=== PATIENT | female | born 1945 | race Caucasian/White ===

== ENCOUNTER 2022-05-17 09:17 | Outpatient (CLI) | payer OTHER, MEDICARE ==
[2022-05-17 09:49] LABS: BASOPHILS % (AUTO) 0.4 %; EOSINOPHILS # (AUTO) 0.1 10^3/uL (0.0-0.7); EOSINOPHILS % (AUTO) 0.9 %; HCT - HEMATOCRIT 48.2 % (37.0-47.0); HGB - HEMOGLOBIN 15.7 g/dL (12.0-16.0); LYMPHOCYTES % (AUTO) 40.3 %; MEAN CORPUSCULAR HEMOGLOBIN 29.7 pg (27.0-31.0); MEAN CORPUSCULAR HGB CONC 32.6 g/dL (32.0-36.0); MEAN CORPUSCULAR VOLUME 91.1 fL (81.0-99.0); MEAN PLATELET VOLUME 9.5 fL (7.9-10.8); MONOCYTES # (AUTO) 0.5 10^3/uL (0.0-1.0); MONOCYTES % (AUTO) 6.8 %; NEUTROPHILS # (AUTO) 3.8 10^3/uL (1.5-6.6); NEUTROPHILS % (AUTO) 51.3 %; PLT - PLATELET COUNT 232 10^3/uL (130-450); RED BLOOD COUNT 5.29 10^6/uL (4.20-5.40); RED CELL DISTRIBUTION WIDTH 12.8 % (12.0-15.0); WHITE BLOOD COUNT 7.5 x10^3/uL (4.8-10.8)
[2022-05-17 09:50] LABS: BILIRUBIN,URINE NEGATIVE (NEGATIVE); GLUCOSE, URINE (UA) NEGATIVE (NEGATIVE); KETONES,URINE (UA) NEGATIVE (NEGATIVE); LEUKOCYTE ESTERASE, URINE SMALL (NEGATIVE); NITRITE,URINE NEGATIVE (NEGATIVE); OCCULT BLOOD,URINE NEGATIVE (NEGATIVE); PROTEIN,URINE NEGATIVE (NEGATIVE); UROBILINOGEN,URINE 0.2 (NORMAL) E.U./dL (NORMAL)
[2022-05-17 10:05] LABS: CLARITY,URINE CLEAR (CLEAR); RBC,URINE None Seen /HPF (0-5); SQUAMOUS EPITHELIAL CELL,UR MOD Squamous (<= Few)
[2022-05-17 10:06] LABS: BACTERIA,URINE Few /HPF (None Seen)
[2022-05-17 10:16] LABS: THYROID STIMULATING HORMONE 2.54 uIU/mL (0.34-5.60)
[2022-05-17 11:32] LABS: ALBUMIN 4.1 g/dL (3.2-5.5); ALBUMIN/GLOBULIN RATIO 1.1 (1.0-2.2); ALKALINE PHOSPHATASE 44 IU/L (42-121); ALT ALANINE AMINOTRANSFERASE 16 IU/L (10-60); AST ASPARTATE AMINOTRANSFERASE 19 IU/L (10-42); BUN - BLOOD UREA NITROGEN 16 mg/dL (6-20); CALCIUM 9.7 mg/dL (8.5-10.3); CARBON DIOXIDE - CO2 26 mmol/L (21-32); CHLORIDE 102 mmol/L (101-111); CHOL/HDL RATIO 4.9 (<4.4); CHOLESTEROL 309 mg/dL; CREATININE 0.8 mg/dL (0.4-1.0); GFR - MDRD 70 (>89); GLUCOSE 98 mg/dL (70-100); HDL CHOLESTEROL 63 mg/dL; LDL CHOLESTEROL,CALCULATED 226 mg/dL; LDL/HDL RATIO 3.6 (<4.4); POTASSIUM 3.9 mmol/L (3.5-5.0); SODIUM 136 mmol/L (135-145); TOTAL PROTEIN 7.7 g/dL (6.7-8.2); TRIGLYCERIDES 98 mg/dL; VLDL CHOLESTEROL 20 mg/dL
== END 2022-05-17 09:18 | disposition home or self-care (01) ==
LOC: LAB 09:17
PROVIDERS: ATTEND Physician Assistant
DX: R94.4 Abnormal results of kidney function studies (principal); R42 Dizziness and giddiness; E78.5 Hyperlipidemia, unspecified; R35.0 Frequency of micturition
CPT/HCPCS: 36415; 80053; 80061; 81001; 83721; 84443; 85025; 87086

== ENCOUNTER 2022-05-20 08:00 | Outpatient (CLI) | payer MEDICARE ==
[2022-05-20 18:47] LABS: BILIRUBIN,URINE NEGATIVE (NEGATIVE); CLARITY,URINE CLEAR (CLEAR); GLUCOSE, URINE (UA) NEGATIVE (NEGATIVE); KETONES,URINE (UA) NEGATIVE (NEGATIVE); LEUKOCYTE ESTERASE, URINE TRACE (NEGATIVE); NITRITE,URINE POSITIVE (NEGATIVE); OCCULT BLOOD,URINE NEGATIVE (NEGATIVE); PROTEIN,URINE NEGATIVE (NEGATIVE); UROBILINOGEN,URINE 0.2 (NORMAL) E.U./dL (NORMAL)
[2022-05-20 19:08] LABS: RBC,URINE 0-5 /HPF (0-5); SQUAMOUS EPITHELIAL CELL,UR FEW Squamous (<= Few)
[2022-05-20 19:09] LABS: BACTERIA,URINE Many /HPF (None Seen)
== END 2022-05-20 23:59 | disposition home or self-care (01) ==
LOC: LAB 08:00
PROVIDERS: ATTEND Physician Assistant
DX: R35.0 Frequency of micturition (principal)
CPT/HCPCS: 81001; 87077; 87086; 87181

== ENCOUNTER 2022-05-24 09:22 | Outpatient (CLI) | payer MEDICARE ==
--- NOTE | 2022-05-24 11:35 | XRAY Report ---
PROCEDURE: Lumbar Spine Complete INDICATIONS: BI LAT LEG PAIN LEG WEAKNESS AND UNSTEADY GATE TECHNIQUE: 4 views of the lumbar spine were acquired. COMPARISON: None. FINDINGS: Bones: 5 sol-vud-[id number] vertebrae are present. Minimal scoliosis. Small vertebral body osteophytes. Lower lumbar spine facet joint hypertrophy with neural foraminal narrowing. No vertebral body compr ession fractures. No suspicious bony lesions. Soft tissues: Overlying bowel gas pattern is normal. No suspicious soft tissue calcifications. Cho lecystectomy clips. Clips in the region of the stomach. Aortic vascular calcifications. IMPRESSION: No compression fracture. Overall moderate DDD and degenerative change. MRI could be considered for further evaluation. Reviewed by: Mark Owens MD on 05/24/2022 10:34 AM MARSHA Approved by: Mark Owens MD on 05/24/2022 10:34 AM MARSHA Station ID: [id number]
--- NOTE | 2022-05-24 11:39 | XRAY Report ---
PROCEDURE: Hips 2V BILAT INDICATIONS: BI LAT LEG PAIN LEG WEAKNESS AND UNSTEADY GATE TECHNIQUE: 2 views of the hip were acquired. COMPARISON: Same day lumbar spine radiographs. FINDINGS: Bones: No fractures or dislocations. There is mild sclerosis at the iliac aspects of the SI joints bilaterally. There is mild sclerosis at the pubic symphysis. There is mild to moderate joint space na rrowing at the hip joints which is symmetric. There is acetabular roof sclerosis. No suspicious bony lesions. The visualized pelvic ring appears intact. Soft tissues: No suspicious soft tissue calcifications or masses. IMPRESSION: Moderate bilateral hip DJD. Sclerosis at the SI joints. 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 Reviewed by: Mark Owens MD on 05/24/2022 10:38 AM MARSHA Approved by: Mark Owens MD on 05/24/2022 10:38 AM MARSHA Station ID: [id number]
--- NOTE | 2022-05-24 11:40 | XRAY Report ---
PROCEDURE: Knee 3 View LT INDICATIONS: BI LAT LEG PAIN LEG WEAKNESS AND UNSTEADY GATE TECHNIQUE: 3 views of the left knee(s) were acquired. COMPARISON: None. FINDINGS: Bones: No fractures or dislocations. There is moderate joint space narrowing most pronounced at the lateral compartment. There is tricompartment osteophytosis. No suspicious bony lesions. Soft tissues: Trace joint effusion. No suspicious soft tissue calcifications. 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 Reviewed by: Mark Owens MD on 05/24/2022 10:39 AM MARSHA Approved by: Mark Owens MD on 05/24/2022 10:39 AM MARSHA Station ID: [id number]
== END 2022-05-24 09:23 | disposition home or self-care (01) ==
LOC: DI 09:22
PROVIDERS: ATTEND Physician Assistant
DX: M51.36 Other intervertebral disc degeneration, lumbar region (principal); M47.816 Spondylosis without myelopathy or radiculopathy, lumbar region; M16.0 Bilateral primary osteoarthritis of hip; M17.12 Unilateral primary osteoarthritis, left knee

== ENCOUNTER 2022-06-05 07:41 | Outpatient (CLI) | payer MEDICARE | END 2022-06-05 07:42 | disposition home or self-care (01) | LOC: DI 07:41 | PROVIDERS: ATTEND Physician Assistant | DX: R01.1 Cardiac murmur, unspecified (principal); I51.7 Cardiomegaly | CPT/HCPCS: 93306 ==

== ENCOUNTER 2022-08-04 15:28 | Outpatient (CLI) | payer MEDICARE ==
--- NOTE | 2022-08-04 12:22 | XRAY Report ---
PROCEDURE: Knee 4 View LT INDICATIONS: LEFT KNEE PAIN TECHNIQUE: 4 views of the left knee(s) were acquired. COMPARISON: None. FINDINGS: Bones: No fractures or dislocations. No suspicious bony lesions. There is moderate to severe left medial compartment narrowing unchanged. Small periarticular osteophytes. Moderate to severe lateral c ompartment narrowing is present bilaterally. Talar osteophyte with mild to moderate patellofemoral co mpartment narrowing is present. Soft tissues: Mild joint effusion. No suspicious soft tissue calcifications. IMPRESSION: Tricompartmental arthritic change stable compared to prior exam. Reviewed by: Lorrie Wren MD on 08/04/2022 12:21 PM PST Approved by: Lorrie Wren MD on 08/04/2022 12:21 PM PST Station ID: [id number]
== END 2022-08-04 15:29 | disposition home or self-care (01) ==
LOC: DI.WOS 15:28
PROVIDERS: ATTEND Physician Assistant Surgical
DX: M17.12 Unilateral primary osteoarthritis, left knee (principal); M25.462 Effusion, left knee

== ENCOUNTER 2022-08-12 14:44 | Outpatient (CLI) | payer MEDICARE ==
--- NOTE | 2022-08-12 19:12 | XRAY Report ---
PROCEDURE: Hip BILAT INDICATIONS: BILAT HIP PAIN TECHNIQUE: 2 views of each hip. COMPARISON: Hip radiographs 05/24/2022. FINDINGS: Bones: No fractures or dislocations. Stable sclerosis at the ileum adjacent to the SI joint. Suspec t osteitis condensans ilii. Mild bilateral hip joint space narrowing. Acetabular roof sclerosis. No s uspicious bony lesions. The visualized pelvic ring appears intact. Soft tissues: No suspicious soft tissue calcifications or masses. IMPRESSION: No significant interval change. Moderate bilateral hip DJD. Reviewed by: Mark Owens MD on 08/12/2022 7:10 PM PST Approved by: Mark Owens MD on 08/12/2022 7:10 PM PST Station ID: [id number]
== END 2022-08-12 14:45 | disposition home or self-care (01) ==
LOC: DI.WOS 14:44
PROVIDERS: ATTEND Physician Assistant Surgical
DX: M16.0 Bilateral primary osteoarthritis of hip (principal)

== ENCOUNTER 2023-06-03 08:00 | Outpatient (CLI) | payer MEDICARE ==
[2023-06-03 18:35] LABS: BILIRUBIN,URINE NEGATIVE (NEGATIVE); GLUCOSE, URINE (UA) NEGATIVE (NEGATIVE); KETONES,URINE (UA) NEGATIVE (NEGATIVE); LEUKOCYTE ESTERASE, URINE LARGE (NEGATIVE); NITRITE,URINE NEGATIVE (NEGATIVE); OCCULT BLOOD,URINE MODERATE (NEGATIVE); PROTEIN,URINE NEGATIVE (NEGATIVE); UROBILINOGEN,URINE 0.2 (NORMAL) E.U./dL (NORMAL)
[2023-06-03 18:42] LABS: CLARITY,URINE CLOUDY (CLEAR)
[2023-06-03 19:12] LABS: BACTERIA,URINE Moderate /HPF (None Seen); SQUAMOUS EPITHELIAL CELL,UR FEW Squamous (<= Few); WBC,URINE >25 /HPF (0-5)
== END 2023-06-03 23:59 | disposition home or self-care (01) ==
LOC: LAB.WCP 08:00
PROVIDERS: ATTEND Physician Assistant
DX: N39.0 Urinary tract infection, site not specified (principal)
CPT/HCPCS: 81001; 87086; 87181

== ENCOUNTER 2023-06-21 09:12 | Outpatient (CLI) | payer MEDICARE ==
[2023-06-21 09:42] LABS: CALCIUM 9.8 mg/dL (8.5-10.3); POTASSIUM 4.1 mmol/L (3.5-4.5)
== END 2023-06-21 09:13 | disposition home or self-care (01) ==
LOC: LAB 09:12
PROVIDERS: ATTEND Physician Assistant
DX: N39.0 Urinary tract infection, site not specified (principal)
CPT/HCPCS: 36415; 80048

== ENCOUNTER 2023-07-08 08:00 | Outpatient (CLI) | payer MEDICARE ==
[2023-07-08 15:58] LABS: BILIRUBIN,URINE NEGATIVE (NEGATIVE); GLUCOSE, URINE (UA) NEGATIVE (NEGATIVE); KETONES,URINE (UA) NEGATIVE (NEGATIVE); LEUKOCYTE ESTERASE, URINE NEGATIVE (NEGATIVE); NITRITE,URINE NEGATIVE (NEGATIVE); OCCULT BLOOD,URINE NEGATIVE (NEGATIVE); PROTEIN,URINE NEGATIVE (NEGATIVE); UROBILINOGEN,URINE 0.2 (NORMAL) E.U./dL (NORMAL)
[2023-07-08 15:59] LABS: CLARITY,URINE CLEAR (CLEAR)
[2023-07-08 16:30] LABS: BACTERIA,URINE Rare /HPF (None Seen); RBC,URINE 0-5 /HPF (0-5); SQUAMOUS EPITHELIAL CELL,UR FEW Squamous (<= Few); WBC,URINE 0-3 /HPF (0-5)
== END 2023-07-08 23:59 | disposition home or self-care (01) ==
LOC: LAB.R 08:00
PROVIDERS: ATTEND Urology
DX: N32.81 Overactive bladder (principal)
CPT/HCPCS: 81001; 87086

== ENCOUNTER 2023-07-18 07:22 | Outpatient (CLI) | payer MEDICARE ==
--- NOTE | 2023-07-18 19:20 | Ultrasound Report ---
PROCEDURE: Retroperitoneal INDICATIONS: RECURRENT BACTERIAL CYSTITIS TECHNIQUE: Real-time scanning was performed of the retroperitoneal organs, with image documentation. COMPARISON: None. FINDINGS: Kidneys: Kidneys are normal in size. Right kidney measures 11.2 cm long; left kidney measures 10.6 cm long. Right renal cortical thickness is 1.0 cm; left renal cortical thickness is 1.4 cm. No erma d masses, hydronephrosis, or nephrolithiasis. Benign, anechoic right-sided renal cysts. Bladder: Pre-void bladder volume is 247 mL. Post-void residual is 76 mL. Pre-void images demonstra te no intraluminal masses or stones. On pre-void images, both ureteral jets are noted with color Dop pler interrogation. (Of note, ureteral jets may not be detectable in up to 25% of cases due to insuf ficient differences in specific gravity between ureteral and bladder urine). Miscellaneous: No free abdominal fluid. IMPRESSION: Post void residual of 76 mL. Normal renal ultrasound otherwise. Reviewed by: Kai Lee MD on 07/18/2023 7:19 PM PST Approved by: Kai Lee MD on 07/18/2023 7:19 PM PST Station ID: [id number]
== END 2023-07-18 07:23 | disposition home or self-care (01) ==
LOC: DI 07:22
PROVIDERS: ATTEND Urology
DX: N30.90 Cystitis, unspecified without hematuria (principal)

== ENCOUNTER 2023-08-08 09:20 | Outpatient (CLI) | payer MEDICARE ==
[2023-08-08 19:25] LABS: BASOPHILS % (AUTO) 0.3 %; EOSINOPHILS # (AUTO) 0.1 10^3/uL (0.0-0.7); EOSINOPHILS % (AUTO) 1.2 %; HCT - HEMATOCRIT 49.4 % (37.0-47.0); HGB - HEMOGLOBIN 15.5 g/dL (12.0-16.0); LYMPHOCYTES # (AUTO) 3.2 10^3/uL (1.5-3.5); LYMPHOCYTES % (AUTO) 33.8 %; MEAN CORPUSCULAR HEMOGLOBIN 29.4 pg (27.0-31.0); MEAN CORPUSCULAR HGB CONC 31.4 g/dL (32.0-36.0); MEAN CORPUSCULAR VOLUME 93.7 fL (81.0-99.0); MEAN PLATELET VOLUME 10.2 fL (7.9-10.8); MONOCYTES # (AUTO) 0.8 10^3/uL (0.0-1.0); MONOCYTES % (AUTO) 7.9 %; NEUTROPHILS # (AUTO) 5.4 10^3/uL (1.5-6.6); NEUTROPHILS % (AUTO) 56.5 %; PLT - PLATELET COUNT 270 10^3/uL (130-450); RED BLOOD COUNT 5.27 10^6/uL (4.20-5.40); RED CELL DISTRIBUTION WIDTH 13.2 % (12.0-15.0); WHITE BLOOD COUNT 9.5 x10^3/uL (4.8-10.8)
[2023-08-08 19:31] LABS: BILIRUBIN,URINE NEGATIVE (NEGATIVE); CLARITY,URINE CLOUDY (CLEAR); GLUCOSE, URINE (UA) NEGATIVE (NEGATIVE); KETONES,URINE (UA) NEGATIVE (NEGATIVE); LEUKOCYTE ESTERASE, URINE MODERATE (NEGATIVE); NITRITE,URINE NEGATIVE (NEGATIVE); OCCULT BLOOD,URINE TRACE-INTA (NEGATIVE); PH,URINE 5.5 PH (5.0-7.5); PROTEIN,URINE NEGATIVE (NEGATIVE); UROBILINOGEN,URINE 0.2 (NORMAL) E.U./dL (NORMAL)
[2023-08-08 19:39] LABS: ALBUMIN 3.9 g/dL (3.2-5.5); ALBUMIN/GLOBULIN RATIO 1.2 (1.0-2.2); ALKALINE PHOSPHATASE 79 IU/L (42-121); ALT ALANINE AMINOTRANSFERASE 14 IU/L (10-60); AST ASPARTATE AMINOTRANSFERASE 15 IU/L (10-42); BILIRUBIN,TOTAL 0.7 mg/dL (0.2-1.0); BUN - BLOOD UREA NITROGEN 15 mg/dL (6-20); CALCIUM 9.6 mg/dL (8.5-10.3); CARBON DIOXIDE - CO2 26 mmol/L (21-32); CHLORIDE 106 mmol/L (101-111); CHOL/HDL RATIO 4.8 (<4.4); CHOLESTEROL 261 mg/dL; CREATININE 0.8 mg/dL (0.6-1.3); GFR - MDRD 69 (>89); GLUCOSE 96 mg/dL (74-104); HDL CHOLESTEROL 54 mg/dL; LDL CHOLESTEROL,CALCULATED 167 mg/dL; LDL/HDL RATIO 3.1 (<4.4); POTASSIUM 4.1 mmol/L (3.5-4.5); SODIUM 137 mmol/L (135-145); TOTAL PROTEIN 7.1 g/dL (6.4-8.9); TRIGLYCERIDES 202 mg/dL (48-352); VLDL CHOLESTEROL 40 mg/dL
[2023-08-08 19:40] LABS: RBC,URINE 0-5 /HPF (0-5); SQUAMOUS EPITHELIAL CELL,UR FEW Squamous (<= Few); WBC,URINE >25 /HPF (0-5)
[2023-08-08 19:41] LABS: BACTERIA,URINE Moderate /HPF (None Seen)
[2023-08-08 19:53] LABS: THYROID STIMULATING HORMONE 3.27 uIU/mL (0.34-5.60)
== END 2023-08-08 09:21 | disposition home or self-care (01) ==
LOC: LAB.N 09:20
PROVIDERS: ATTEND Physician Assistant
DX: I10 Essential (primary) hypertension (principal); E78.5 Hyperlipidemia, unspecified; N39.0 Urinary tract infection, site not specified; Z87.440 Personal history of urinary (tract) infections
CPT/HCPCS: 36415; 80053; 80061; 81001; 81003; 83721; 84443; 85025; 87086; 87181

== ENCOUNTER 2024-12-07 19:35 | Inpatient (IN) ==
--- OUTSIDE RECORDS SUMMARY | 2024-12-07 19:44 | EXTERNAL MEDICAL SUMMARY RPT | Continuity of Care Document ---
Author Organization [place] Address [address] [place] [address], [place] [address]te [address] [place] [id number] Phone Problems date description facility 2024-12-06 17:21 D[facility] and g[facility] Results/Labs test date facility value unit notes Result panel 1 NUCLEATED RED BLOOD CELLS AUTO 2024-12-06 12:31 [facility] 0.0 /100wbc (missing) BASOPHILS # (AUTO) 2024-12-06 12:31 [facility] 0.0 10 3/ul (missing) NRBC ABSOLUTE COUNT (AUTO) 2024-12-06 12:31 [facility] 0.00 x10 3/ul (missing) EOSINOPHILS # (AUTO) 2024-12-06 12:31 [facility] 0.1 10 3/ul (missing) BILIRUBIN,TOTAL 2024-12-06 12:31 [facility] 0.6 mg /dl As of January 2023 testing method has changed, this may include reference ranges. MONOCYTES # (AUTO) 2024-12-06 12:31 [facility] 0.7 10 3/ul (missing) CREATININE 2024-12-06 12:31 [facility] 0.8 mg/dl As of January 2023 testing method has changed, this may include reference ranges. ALBUMIN/GLOBULIN RATIO 2024-12-06 12:31 [facility] 1.3 (missing) (missing) CHLORIDE 2024-12-06 12:31 [facility] 107 mmol/l As of January 2023 testing method has changed, this may include reference ranges. GLUCOSE 2024-12-06 12:31 [facility] 111 mg/dl As of January 2023 testing method has changed, this may include reference ranges. ALT ALANINE AMINOTRANSFERASE 2024-12-06 12:31 [facility] 12 iu/l As of January 2023 testing method has changed, this may include reference ranges. RED CELL DISTRIBUTION WIDTH [facility]24[facility]-06 [facility] 12.9 % (missing) AST ASPARTATE AMINOTRANSFERASE 2024-12-06 12:31 [facility] 13 iu/l As of January 2023 testing method has changed, this may include reference ranges. SODIUM 2024-12-06 12:31 [facility] 137 mmol/l (missing) HGB - HEMOGLOBIN 2024-12-06 12:31 [facility] 15.4 g /dl (missing) BUN - BLOOD UREA NITROGEN 2024-12-06 12:31 [facility] 16 mg/dl As of Jan testing method has changed, this may include reference ranges. MAGNESIUM 2024-12-06 12:31 [facility] 2.1 mg/dl As of January 2023 testing method has changed, this may include reference ranges. PLT - PLATELET COUNT 2024-12-06 12:31 [facility] 236 10 3/ul (missing) CARBON DIOXIDE - CO2 2024-12-06 12:31 [facility] 24 mmol/l As of January 2023 testing method has changed, this may include reference ranges. MEAN CORPUSCULAR HEMOGLOBIN 2024-12-06 12:31 [facility] 29.9 pg (missing) GLOBULIN 2024-12-06 12:31 [facility] 3.1 g/dl (missing) LYMPHOCYTES # (AUTO) 2024-12-06 12:31 [facility] 3.2 10 3/ul (missing) POTASSIUM 2024-12-06 12:31 [facility] 3.8 mmol/l As of January 2023 testing method has changed, this may include reference ranges. ALBUMIN 2024-12-06 12:31 [facility] 3.9 g/dl As of January 2023 testing method has changed, this may include reference ranges. MEAN CORPUSCULAR HGB CONC 2024-12-06 12:31 [facility] 33.0 g/dl (missing) NEUTROPHILS # (AUTO) 2024-12-06 12:[address] [facility] 4.3 10 3/ul (missing) HCT - HEMATOCRIT 2024-12-06 12:31 [facility] 46.7 % (missing) RED BLOOD COUNT 2024-12-06 12:31 [facility] 5.15 10 6/ul (missing) ANION GAP 2024-12-06 12:31 [facility] 6.0 (missing ) (missing) ALKALINE PHOSPHATASE 2024-12-06 12:31 [facility] 60 iu/l As of January 2023 testing method has changed, this may include reference ranges. GFR - MDRD 2024-12-06 12:31 [facility] 69 (blayne ardon) Social History date description facility
--- NOTE | 2024-12-07 20:26 | ED Physician Documentation ---
History of Present Illness Stated complaint Stated Complaint: DIZZY, N/V Chief complaint Chief Complaint: Neuro History obtained from History obtained from: Patient and Family History of Present Illness Pain level max: 0 Pain level now: 0 Additonal information Additional information: Patient is a 78-year-old female who presents to the emergency department complaining of dizziness like the room is spinning for the past 4 weeks. She states gradually worsening. Seen here yesterday and had a negative head CT and negative MRI. There were no acute infarctions. She had felt better reportedly after meclizine. She states today nausea and vomiting returned and the dizziness worsened again. No fevers or chills. No recent travel. No falls or trauma. Patient states that she has been unable to stop vomiting today. No blood in the emesis. No blood in the stool. No abdominal pain. She states that the dizziness originally was only with movement, now it is occurring at rest as well. Review of Systems Constitutional Denies: Fever or Chills Ears, nose, mouth, and throat Denies: Neck pain Respiratory Denies: Cough Gastrointestinal Reports: Nausea and Vomiting Genitourinary Denies: Painful urination, Urinary frequency or Nocturia Musculoskeletal Denies: Back pain or Neck pain Integumentary/Breast Denies: Rash Meds/Allgy Home Medications Ambulatory Orders Medication Instructions Recorded Confirmed esomeprazole magnesium 20 mg 20 mg PO DAILY 12/06/24 0 12/06/24 capsule,delayed release (Nexium) meclizine 25 mg tablet 25 mg PO BID #10 tabs Allergies Allergies Allergy/AdvReac Type Severity Reaction Status Date / Time No Known Drug Allergies Allergy Verified 12/07/24 19:46 PFSH Active Problems All Active Problems Vomiting (Acute) Vertigo (Acute) Dizziness (Acute) Medical History Medical History Chronic back pain Arthritis HTN (hypertension) Surgical History Surgical History H/O hernia repair Social History Social History Smoking Status: Never smoker Do you dip or chew tobacco?: No Do you vape?: No Living arrangement: At home Relationship: Do you feel safe in your home environment?: Yes Suffered physical, verbal, emotional, or financial abuse?: No History of Abuse: No ETOH Use: None Substance Use: denies use POLST Patient has POLST: No Exam Exam Vital Signs: Vital Signs x48h Temp Pulse Resp BP Pulse Ox 12/07/24 22:07 60 16 154/88 H 91 L 12/07/24 20:08 36.2 C L 100 20 199/114 H 95 12/07/24 19:35 37.1 C 65 16 213/101 H 96 Constitutional normal general appearance and no apparent distress HENMT normocephalic, head/scalp atraumatic, TMs normal bilaterally and oral mucous membranes normal Eyes PERRL and EOMs intact bilaterally Neck/C-Spine trachea midline and cervical spine nontender Respiratory breath sounds equal bilaterally and normal respiratory effort Cardiovascular normal heart rate noted and regular rhythm noted Gastrointestinal abdomen soft to palpation, nontender to palpation and nondistended Extremities full ROM Neurology shopper II-XII intact, no focal motor deficit noted, no sensory deficits noted, gait normal, speech normal and GCS 15 normal cerebellar testing Psychiatry mental status grossly normal and oriented x3 Skin skin color normal Results Vitals Vitals: Vital Signs - 24 hr 12/07/24 19:35 12/07/24 20:08 12/07/24 22:07 Temperature 37.1 C 36.2 C L Temperature Source Axillary Axillary Pulse Rate 65 100 60 Respiratory Rate 16 20 16 Blood Pressure 213/101 H 199/114 H 154/88 H O2 Saturation 96 95 91 L O2 Source Room air Room air Room air Pain Intensity 0 2 Oxygen O2 Source Room air Labs Labs: Laboratory Tests 12/07/24 20:56 WBC 9.9 RBC 5.24 Hgb 15.4 Hct 48.8 H MCV 93.1 MCH 29.4 MCHC 31.6 L RDW 12.8 Plt Count 214 MPV 9.7 Neut # (Auto) 7.3 H Lymph # (Auto) 2.0 [place] # (Auto) 0.5 Eos # (Auto) 0.0 Baso # (Auto) 0.0 Absolute Nucleated RBC 0.00 Nucleated RBC % 0.0 Sodium 133 L Potassium 4.2 Chloride 101 Carbon Dioxide 22 Anion Gap 10.0 BUN 15 Creatinine 0.8 Estimated GFR (MDRD) 69 L Glucose 180 H Calcium 9.1 Total Bilirubin 1.0 AST 16 ALT 13 Alkaline Phosphatase 63 Total Protein 7.2 Albumin 3.9 Globulin 3.3 Albumin/Globulin Ratio 1.2 Rads (name of study) CT angiogram head and neck: Relevant Findings:: Final report received PD Medical Decision Making ED course Complexity details: reviewed results, re-evaluated patient, considered differential and d/w patient ED course: 78-year-old female persistent vertigo, nausea and vomiting. Given Phenergan, Ativan and a scopolamine patch applied. She had been taking the meclizine at home but thought that that may be causing her vomiting so she did not want to take that here. Does not have any focal neurological deficits. Negative head CT and MRI yesterday. No indication to repeat this today. She improved and is no longer vomiting but is still dizzy and unable to walk. Given her persistent symptoms and lack of improvement as an outpatient, we will contact the hospitalist. Discussed the case with the hospitalist who accepts. This document was made in part using voice recognition software. While efforts are made to proofread this document, sound alike and grammatical errors may occur. Discharge Plan Discharge Patient Disposition: ED Place in Observation Clinical Impression: Dizziness, Vertigo, Vomiting Prescriptions: No Action esomeprazole magnesium [Nexium] 20 mg capsule,delayed release(DR/EC) 20 mg PO DAILY meclizine 25 mg tablet 25 mg PO BID Qty: 10 0RF Print Language: Irish Stand Alone Forms: PCP List
[2024-12-07] MEDS ORDERED: PROMETHAZINE 25 MG/1 ML VIAL ONE (20:33)
[2024-12-07] MEDS: SODIUM CHLORIDE 0.9% 1,000 ML IV STA (20:37)
[2024-12-07] MEDS: PROMETHAZINE INJ 25 MG in SODIUM CHLORIDE 0.9% 50 ML IV STA (20:37)
[2024-12-07] MEDS: SCOPOLAMINE PATCH TOP ONE (20:45)
[2024-12-07 21:00] LABS: BASOPHILS % (AUTO) 0.4 %; EOSINOPHILS % (AUTO) 0.1 %; HCT - HEMATOCRIT 48.8 % (37.0-47.0); HGB - HEMOGLOBIN 15.4 g/dL (12.0-16.0); LYMPHOCYTES % (AUTO) 20.3 %; MEAN CORPUSCULAR HEMOGLOBIN 29.4 pg (27.0-31.0); MEAN CORPUSCULAR HGB CONC 31.6 g/dL (32.0-36.0); MEAN CORPUSCULAR VOLUME 93.1 fL (81.0-99.0); MEAN PLATELET VOLUME 9.7 fL (7.9-10.8); MONOCYTES # (AUTO) 0.5 10^3/uL (0.0-1.0); MONOCYTES % (AUTO) 4.6 %; NEUTROPHILS # (AUTO) 7.3 10^3/uL (1.5-6.6); PLT - PLATELET COUNT 214 10^3/uL (130-450); RED BLOOD COUNT 5.24 10^6/uL (4.20-5.40); RED CELL DISTRIBUTION WIDTH 12.8 % (12.0-15.0); WHITE BLOOD COUNT 9.9 x10^3/uL (4.8-10.8)
[2024-12-07 21:18] LABS: ALBUMIN 3.9 g/dL (3.2-5.5); ALBUMIN/GLOBULIN RATIO 1.2 (1.0-2.2); CALCIUM 9.1 mg/dL (8.5-10.3); CREATININE 0.8 mg/dL (0.6-1.3); POTASSIUM 4.2 mmol/L (3.5-4.5); TOTAL PROTEIN 7.2 g/dL (6.4-8.9)
[2024-12-07] MEDS ORDERED: iohexoL-300 100 ML VIAL ONE (21:23)
[2024-12-07] MEDS: iohexoL-300 100 ML VIAL IVP ONE (21:40)
--- NOTE | 2024-12-07 22:04 | CT Report ---
PROCEDURE: CT Angio Head/Neck INDICATIONS: dizzy TECHNIQUE: After the administration of intravenous contrast, 1 mm thick sections acquired from the aortic arch through the Mallie of [place]. 3-dimensional lwikmnl-hoxarvuny-nbptdzueil (MIP) and/or volume rendering reformats were acquired of the central intracranial vasculature and neck separately. For radiation dose reduction, the following was used: automated exposure control, adjustment of mA and/or kV according to patient size. CONTRAST: 70cc [id number] COMPARISON: None. FINDINGS: Image quality: Diagnostic. HEAD CT: CSF Spaces: Basal cisterns are patent. No extra-axial fluid collections. Ventricles are normal in size and shape. Brain: No significant abnormality is seen for scanning technique. Skull and face: Calvarium and visualized facial bones appear intact, without suspicious lesions. Sinuses: Visualized sinuses and mastoids are clear. HEAD CT ANGIOGRAPHY: Anterior circulation: Intracranial internal carotid arteries are normal in size and flow. The flow within the paired anterior cerebral arteries is normal and symmetric. The flow within the middle cerebral arteries is normal and symmetric. The anterior communicating artery is seen. No aneurysms are seen. Posterior circulation: Visualized portions of the vertebral arteries demonstrate normal caliber, and join to form a normal appearing basilar artery. Flow within the posterior cerebral arteries is normal and symmetric. No aneurysms are seen. NECK CT ANGIOGRAPHY: Carotid system: The great vessels demonstrate a conventional anatomy as they arise from the aortic arch. The origins of the common carotid arteries appear patent. The common carotid arteries demonstrate normal caliber and courses. Atherosclerotic calcifications are noted involving left carotid bifurcation with less than 50% stenosis. The right carotid bifurcation is widely patent. The internal carotid arteries demonstrate normal calibers and courses. Posterior circulation: The origins of the vertebral arteries both appear widely patent. The more superior extracranial portions of both vertebral arteries also demonstrate normal courses and calibers. They join to form a normal appearing basilar artery. Soft tissues: Visualized neck soft tissues demonstrate no suspicious abnormalities. Bones: No suspicious bony lesions. Visualized cervical spine appears normally aligned. IMPRESSION: 1. No hemodynamically significant stenosis or aneurysm is seen in the intracranial circulation. 2. Mild to moderate atherosclerotic calcifications are noted in left carotid bifurcation with less than 50% stenosis involving origin of left internal carotid artery. No hemodynamically significant stenosis or aneurysm is seen in bilateral neck arteries. The estimate of stenosis included in the report of the imaging study was calculated using the NASCET method Reviewed by: Nilesh Ng MD on 12/07/2024 10:02 PM PDT Approved by: Nilesh Ng MD on 12/07/2024 10:02 PM PDT Station ID: [id number]
[2024-12-07] MEDS: LORazepam 2 MG/ML VIAL IVP STA (22:31)
--- NOTE | 2024-12-07 23:57 | HISTORY & PHYSICAL EXAMINATION ---
Chief Complaint Chief Complaint Chief Complaint: dizziness History of Present Illness Admitted From Admitted From:: Home History Obtained From Records Reviewed: yes History obtained from: ED physician, patient Exam Limitations: telemedicine History of Present Illness HPI Comment/Other: Patient with a h/o hypertension presented to the ED for evaluation of dizziness x 4 weeks. She explained that initially episodes were precipitated with movement now but now are occurring at rest. She denies any change in vision, chestpain, tinnitus. Her workup has included, CT, CTA , MRI, EKG basic labs and have been unremarkable. She was given meclizine as outpatient which temporarily improved her symptoms, but today after she took the meclizine she developed nausea and had multiple episodes of vomiting.In the ED, she is more comfortable after symptomatic treatment with phernergan, scopolamine, and ativan. She was however unable to walk without the return of the dizziness. i will admit for observation and monitoring. I performed this visit using real-time telehealth tool including live video. Patient provided consent to perform this visit using telemedicine modality available. At the time of this visit, patient was located at [facility] in the [facility]. I was located in [place]. Patient's nurse Gaby was at bedside during the visit. . Review of Systems Status of ROS: 10 or more systems reviewed and unremarkable except as noted in history and below PFSH Active Problems All Active Problems Vomiting (Acute) Vertigo (Acute) Dizziness (Acute) Medical History Medical History Chronic back pain Arthritis HTN (hypertension) Surgical History Surgical History H/O hernia repair Social History Social History Smoking Status: Never smoker Do you dip or chew tobacco?: No Do you vape?: No Living arrangement: At home Relationship: Do you feel safe in your home environment?: Yes Suffered physical, verbal, emotional, or financial abuse?: No History of Abuse: No ETOH Use: None Substance Use: denies use POLST Patient has POLST: No Meds/Allgy Home Medications Ambulatory Orders Medication Instructions Recorded Confirmed esomeprazole magnesium 20 mg 20 mg PO DAILY 12/06/24 0 12/06/24 capsule,delayed release (Nexium) meclizine 25 mg tablet 25 mg PO BID #10 tabs Allergies Allergies Allergy/AdvReac Type Severity Reaction Status Date / Time No Known Drug Allergies Allergy Verified 12/07/24 19:46 Exam Exam Vital Signs: Vital Signs x48h Temp Pulse Resp BP Pulse Ox 12/07/24 23:52 58 L 16 138/74 H 92 12/07/24 22:07 60 16 154/88 H 91 L 12/07/24 20:08 36.2 C L 100 20 199/114 H 95 12/07/24 19:35 37.1 C 65 16 213/101 H 96 Examination as recorded was obtained from onsite ED physician and nurse, and through peripheral observation Constitutional normal general appearance and level of alertness abnormal lethargic, easily arousable, HENMT normocephalic and head/scalp atraumatic Eyes PERRL, EOMs intact bilaterally and no nystagmus Cardiovascular normal heart rate noted and regular rhythm noted Neurology no focal motor deficit noted Conclusion/Plan Problem List (1) Vertigo: Plan: progressive dizziness x 4 weeks, neurologic workup negative. no cardiac history. ECHO 2021 within normal limits. will continue to manage as follows -monitor on telemetry and serial vitals -fall precaution up with assitance only -suspected BPV, physcial theray consultation place to assist with further mangement -continue with symptomatic management, scopolamine patch and antiemetics (2) HTN (hypertension): Plan: medications reviewed, no reported prescription for antihypertensive -will provide IV antihypertensives for SBP >160 as needed Lab Results Lab results reviewed: Yes 12/07/24 20:56 12/07/24 20:56 Core Measures Anticipated LOS I expect patient to be DC'd or transferred within 96 hours.: Yes DVT/VTE - Prophylaxis VTE/DVT Device ordered at admit?: Yes Telemedicine Consult Details Provider Location & Consult Time Telemedicine consultation conducted via videoconferencing?: Yes Telemedicine provider location:: [place]
[2024-12-08] MEDS ORDERED: SODIUM CHLORIDE FLUSH 0.9% 10 ML SYRINGE IVP PRN (00:05)
[2024-12-08] MEDS ORDERED: ONDANSETRON 4 MG/2 ML VIAL IVP PRN (00:05)
[2024-12-08] MEDS ORDERED: ACETAMINOPHEN 325 MG TABLET PO PRN (00:05)
[2024-12-08] MEDS: SODIUM CHLORIDE 0.9% 1,000 ML IV SCH (01:01)
[2024-12-08] MEDS: SODIUM CHLORIDE FLUSH 0.9% 10 ML SYRINGE IVP SCH (01:02)
[2024-12-08] MEDS: cefTRIAXone 1 GM VIAL IVP SCH (01:28)
[2024-12-08 08:47] LABS: BASOPHILS # (AUTO) 0.1 10^3/uL (0.0-0.1); BASOPHILS % (AUTO) 0.4 %; EOSINOPHILS # (AUTO) 0.1 10^3/uL (0.0-0.7); EOSINOPHILS % (AUTO) 0.5 %; HCT - HEMATOCRIT 49.8 % (37.0-47.0); HGB - HEMOGLOBIN 16.2 g/dL (12.0-16.0); LYMPHOCYTES # (AUTO) 3.1 10^3/uL (1.5-3.5); LYMPHOCYTES % (AUTO) 25.2 %; MEAN CORPUSCULAR HEMOGLOBIN 29.9 pg (27.0-31.0); MEAN CORPUSCULAR HGB CONC 32.5 g/dL (32.0-36.0); MEAN CORPUSCULAR VOLUME 91.9 fL (81.0-99.0); MEAN PLATELET VOLUME 9.6 fL (7.9-10.8); MONOCYTES # (AUTO) 0.8 10^3/uL (0.0-1.0); MONOCYTES % (AUTO) 6.3 %; NEUTROPHILS # (AUTO) 8.2 10^3/uL (1.5-6.6); NEUTROPHILS % (AUTO) 67.4 %; PLT - PLATELET COUNT 210 10^3/uL (130-450); RED BLOOD COUNT 5.42 10^6/uL (4.20-5.40); RED CELL DISTRIBUTION WIDTH 12.9 % (12.0-15.0); WHITE BLOOD COUNT 12.1 x10^3/uL (4.8-10.8)
[2024-12-08 09:23] LABS: CALCIUM 9.4 mg/dL (8.5-10.3); CREATININE 0.7 mg/dL (0.6-1.3); POTASSIUM 3.8 mmol/L (3.5-4.5)
--- NOTE | 2024-12-08 11:37 | PHARMACY PROGRESS NOTE ---
Best Possible Medication History Admit Date and Time: 12/07/24 2324 Home Medications Medication Instructions Recorded Confirmed Type esomeprazole magnesium 20 mg 20 mg PO DAILY 12/06/24 0 12/08/24 History capsule,delayed release (Nexium) calcium carbonate (Calcium 500) 500 mg PO .QHS 5 12/08/24 History cranberry 500 mg capsule 500 mg PO UD 12/08/24 History Processed by: Pharmacy (Medication reconciliation completed by [employer]) Medications reviewed in ED?: No Medication History completed: Yes Patient Interview: Completed Secondary Source(s): Insurance records [facility] Statement: As the person ultimately responsible for medication therapy, providers are able to order a medication from an existing home medication list in [facility] via the "Reconcile Routine" prior to Confirmation of that medication by web support engineer. Such practice is discouraged except when the physician, in their clinical judgment, deems that a medical need exists for a medication without regard to previous use.
--- NOTE | 2024-12-08 14:02 | PT Plan of Care ---
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 Pt lives alone in [facility] with tub shower. Has a shower stool but no grab bars. Has a walker for out of home mobility, cane for in home mobility. No longer drives. Son lives nearby and assists with groceries, errands, etc. Pt was admitted for suspected BPPV vs CVA, all imaging negative for acute process. Upon PT eval, pt is hypertensive and not orthostatic. Reports mild constant dizziness and does not endorse dizziness with positional changes. No nystagmus noted with all vestibular testing aside from minimal R eye nystagmus with VOR testing. Pt did not report increased symptoms. Vertebral artery testing did not reproduce symptoms. Clinical s/sx do not indicate BPPV rather a possible cardiovascular cause of dizziness given hypertension and report of constant vs positional dizziness. Plan to continued skilled PT in acute setting to progress mobility and reduce fall risk. When medically clear PT rec dc to home with HH vs OPPT pending progress. Goals Improve bed mobility to: Modified Independent Improve supine to sit to: Modified Independent Improve sit to stand to: Modified Independent Improve pivot transfer ability Modified Independent to: Improve sit to supine to: Modified Independent Improve gait ability to: SBA Assistive Device Used: Front Wheeled Walker PT Plan of Care Frequency 1-2x/day Duration Until goals are met Discharge Recommendations Discharge Location Previous Living Situation Support/Services Needed HH vs OP DC Equipment Recommended Front wheeled walker Other may need shower bench Transport Needs at Discharge Personal vehicle
--- NOTE | 2024-12-08 14:02 | PT Plan of Care ---
PT Plan of Care Physical Therapy Plan of Care: Diagnosis Diagnosis dizziness Diagnosis stroke r/o Referring Provider Salena Rivera Patient Status Observation Chief Complaint Chief Complaint dizzy Onset of Chief Complaint 4weeks [employer] Medical History (Updated 12/07/24 @ 22:44 by Todd Jones MD) Chronic back pain Arthritis HTN (hypertension) Surgical History (Updated 12/06/24 @ 11:25 by Garrison Ramey RN) H/O hernia repair Balance/ Functional Results Sitting Balance Good Standing Balance Fair Assessment Assessment Pt is a pleasant 78yo F referred for PT eval d/t dizziness x4 weeks and limited mobility. Pt lives alone in [facility] with tub shower. Has a shower stool but no grab bars. Has a walker for out of home mobility, cane for in home mobility. No longer drives. Son lives nearby and assists with groceries, errands, etc. Pt was admitted for suspected BPPV vs CVA, all imaging negative for acute process. Upon PT eval, pt is hypertensive and not orthostatic. Reports mild constant dizziness and does not endorse dizziness with positional changes. No nystagmus noted with all vestibular testing aside from minimal R eye nystagmus with VOR testing. Pt did not report increased symptoms. Vertebral artery testing did not reproduce symptoms. Clinical s/sx do not indicate BPPV rather a possible cardiovascular cause of dizziness given hypertension and report of constant vs positional dizziness. Plan to continued skilled PT in acute setting to progress mobility and reduce fall risk. When medically clear PT rec dc to home with HH vs OPPT pending progress. Goals Improve bed mobility to: Modified Independent Improve supine to sit to: Modified Independent Improve sit to stand to: Modified Independent Improve pivot transfer ability Modified Independent to: Improve sit to supine to: Modified Independent Improve gait ability to: SBA Assistive Device Used: Front Wheeled Walker PT Plan of Care Frequency 1-2x/day Duration Until goals are met Discharge Recommendations Discharge Location Previous Living Situation Support/Services Needed HH vs OP DC Equipment Recommended Front wheeled walker Other may need shower bench Transport Needs at Discharge Personal vehicle
--- NOTE | 2024-12-08 14:03 | OT Plan of Care ---
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 She explained that initially episodes were precipitated with movement now but now are occurring at rest. She denied any change in vision, chest pain, tinnitus. Her workup has included, CT, CTA , MRI, EKG basic labs and have been unremarkable. Seen for OT consult 2/2 ? vertigo. Met sitting in chair A&Ox4. Denied dizziness and nausea at rest. BP stable at 16/81 sitting, 153/88 standing Mild increased dizziness with standing and ambulation however non descript of typical vertigo presentation. Pt describing internal dizziness and nausea vs positional change triggers. Noted minimal nystagmus with VOR testing on R however no increased dizziness symptoms during testing. Rec cont Outpatient work with Vestibular PT and further medical work up. Currently MIN A ambulation and ADLs with slowed pace 2/2 dizziness which appears to be improving. Overall presents with decreased endurance, activity tolerance and ADL status. Will benefit from cont OT services during acute stay. Rec d/c to home with family assist, HHOT, and eventual cont Outpatient PT services. Goals - Activities of Daily Living Improve Upper Extremity Modified Independent Dressing to: Improve Lower Extremity Modified Independent Dressing to: Improve Grooming/Hygiene to: Modified Independent Improve Bathing to: Modified Independent Improve Toileting to: Modified Independent Plan Treatment Frequency 1x/day Duration Until discharge -Discharge Recommendations Discharge Location Previous Living Situation Support/Services Needed Home Health O.T. Transport Needs at Discharge Personal vehicle
[2024-12-08] MEDS: PANTOPRAZOLE 40 MG VIAL IVP ONE (14:36)
--- NOTE | 2024-12-08 21:45 | PROVIDER PROGRESS NOTE ---
Subjective Prog Note Date Prog Note Date: 12/08/24 Subjective Subjective: Complains of a dry mouth. She is drinking lots of water due to this. her dizziness is much improved from last evening. She is not vomiting and is tolerating a diet. Current Medications Current Medications Current Medications: Current Medications Generic Name Dose Route Start Last Admin Trade Name Freq PRN Reason Stop Dose Admin Acetaminophen 650 mg 12/08/24 00:05 Acetaminophen 325 Mg Tablet PO Q4HR PRN Pain 1 to 4, or Fever Ceftriaxone Sodium 1 gm 12/08/24 01:13 12/08/24 09:05 Ceftriaxone 1 Gm Vial IVP 1 gm DAILY NUSRAT Administration Ondansetron HCl 4 mg 12/08/24 00:05 Ondansetron 4 Mg/2 Ml Vial IVP Q6HR PRN Nausea / Vomiting Ondansetron HCl 4 mg 12/08/24 00:05 Ondansetron Odt 4 Mg Tablet TL Q6HR PRN Nausea / Vomiting Sodium Chloride 10 ml 12/08/24 00:05 Sodium Chloride Flush 0.9% 10 Ml Syringe IVP PRN PRN NEEDED PER PROVIDER ORDERS Sodium Chloride 10 ml 12/08/24 01:00 12/08/24 16:09 Sodium Chloride Flush 0.9% 10 Ml Syringe IVP Not Given 0100,0900,1700 [facility] Objective Vital Signs/Intake & Output Reviewed Vital Signs: Yes Vital Signs: Vital Signs x48h Temp Pulse Pulse Pulse Resp BP BP 12/08/24 16:03 36.7 C 58 L 18 145/76 H 12/08/24 13:00 36.8 C 58 L 20 149/85 H 12/08/24 13:00 58 L 74 166/81 H BP Pulse Ox 12/08/24 16:03 95 12/08/24 13:00 97 12/08/24 13:00 153/88 H Intake & Output: Intake & Output 12/05/24 12/06/24 12/07/24 12/08/24 23:59 23:59 23:59 23:59 Intake Total 1051 / 1051 840 / 840 Output Total 1250 / 1250 Balance 1051 / 1051 -410 / -410 Weight (kg) 81.6 kg 80 kg Objective General Appearance: positive No acute distress and Alert Eyes Bilateral: positive Normal inspection and Conjunctivae nml ENT: positive ENT inspection nml, Dry mucous membranes and Other (right TM cerumen impacted- flushed at bedside, visualized intact. ) Neck: positive Nml inspection and Thyroid nml Respiratory: positive Chest non-tender, No respiratory distress and Breath sounds nml Cardiovascular: positive Regular rate & rhythm and No murmur Abdomen: positive Non-tender and No distention Back: positive Nml inspection Skin: positive Color nml Extremities: positive Non-tender and No pedal edema Neurologic/Psychiatric: positive Oriented x3 Lab Results 12/08/24 08:41 12/08/24 08:41 Other Labs: Lab Results x24hrs 12/08/24 12/07/24 Range/Units 08:41 20:56 WBC 12.1 H 9.9 (4.8-10.8) x10^3/uL RBC 5.42 H 5.24 (4.20-5.40) 10^6/uL Hgb 16.2 H 15.4 (12.0-16.0) g/dL Hct 49.8 H 48.8 H (37.0-47.0) % MCV 91.9 93.1 (81.0-99.0) fL MCH 29.9 29.4 (27.0-31.0) pg MCHC 32.5 31.6 L (32.0-36.0) g/dL RDW 12.9 12.8 (12.0-15.0) % Plt Count 210 214 (130-450) 10^3/uL MPV 9.6 9.7 (7.9-10.8) fL Neut # (Auto) 8.2 H 7.3 H (1.5-6.6) 10^3/uL Lymph # (Auto) 3.1 2.0 (1.5-3.5) 10^3/uL Holmes # (Auto) 0.8 0.5 (0.0-1.0) 10^3/uL Eos # (Auto) 0.1 0.0 (0.0-0.7) 10^3/uL Baso # (Auto) 0.1 0.0 (0.0-0.1) 10^3/uL Absolute Nucleated RBC 0.00 0.00 x10^3/uL Nucleated RBC % 0.0 0.0 /100WBC Sodium 140 133 L (135-145) mmol/L Potassium 3.8 4.2 (3.5-4.5) mmol/L Chloride 108 101 (101-111) mmol/L Carbon Dioxide 22 22 (21-32) mmol/L Anion Gap 10.0 10.0 (6-13) BUN 11 15 (6-20) mg/dL Creatinine 0.7 0.8 (0.6-1.3) mg/dL Estimated GFR (MDRD) 81 L 69 L (>89) Glucose 91 180 H (74-104) mg/dL Calcium 9.4 9.1 (8.5-10.3) mg/dL Total Bilirubin 1.0 (0.2-1.0) mg/dL AST 16 (10-42) IU/L ALT 13 (10-60) IU/L Alkaline Phosphatase 63 (42-121) IU/L Total Protein 7.2 (6.4-8.9) g/dL Albumin 3.9 (3.2-5.5) g/dL Globulin 3.3 (2.1-4.2) g/dL Albumin/Globulin Ratio 1.2 (1.0-2.2) Assessment/Plan Problem List (1) Vertigo: Impression: continuing with successful symptom management. her symptoms are much improved. She received ativan, pheneragan and scopolamine patch in the ED. since admit she has improved. She is eating some, and is drinking well. PT and OT recommend home with home health after continued services here. She is still not steady enough on her feet to dc to home. ENT exam revealed cerumen impaction on the right, this was irriagated and TM was visualized. No change in her dizziness with this. CTA/CT head neg. MRI brain negative. (2) HTN (hypertension): Impression: negative orthostatics. She has been slightly hypertensive here. Selected Entries 12/08/24 13:00 Pulse Rate [Sitting] 58 L Pulse Rate [Standing] 74 Blood Pressure [Sitting] 166/81 H Blood Pressure [Standing] 153/88 H She is not on any blood pressure meds at home. She has had difficulty obtaining primary care. (3) UTI (urinary tract infection): Impression: Perez sensitive E coli. will continue rocephin and change to po abx on dc. total of 7 days. discussed UTI and association with atrophic vaginitis. encouraged primary care followup for possible hormone replacement. I have spent 36 minutes in the care of this patient today. This includes time [id number], review and ordering of diagnostic imaging and laboratory studies. Monitoring the patient's signs symptoms, evaluation of medication effectiveness and patient's response to treatment.
[2024-12-08] MEDS: CALCIUM CARBONATE CHEW 500 MG TABLET PO SCH (23:06)
[2024-12-09] MEDS: ONDANSETRON ODT 4 MG TABLET TL PRN (04:43)
[2024-12-09 04:51] LABS: BASOPHILS # (AUTO) 0.1 10^3/uL (0.0-0.1); BASOPHILS % (AUTO) 0.6 %; EOSINOPHILS # (AUTO) 0.2 10^3/uL (0.0-0.7); EOSINOPHILS % (AUTO) 1.9 %; HCT - HEMATOCRIT 47.5 % (37.0-47.0); HGB - HEMOGLOBIN 15.1 g/dL (12.0-16.0); LYMPHOCYTES # (AUTO) 2.7 10^3/uL (1.5-3.5); LYMPHOCYTES % (AUTO) 34.1 %; MEAN CORPUSCULAR HEMOGLOBIN 29.4 pg (27.0-31.0); MEAN CORPUSCULAR HGB CONC 31.8 g/dL (32.0-36.0); MEAN CORPUSCULAR VOLUME 92.6 fL (81.0-99.0); MEAN PLATELET VOLUME 9.5 fL (7.9-10.8); MONOCYTES # (AUTO) 0.6 10^3/uL (0.0-1.0); MONOCYTES % (AUTO) 7.5 %; NEUTROPHILS # (AUTO) 4.5 10^3/uL (1.5-6.6); NEUTROPHILS % (AUTO) 55.8 %; PLT - PLATELET COUNT 214 10^3/uL (130-450); RED BLOOD COUNT 5.13 10^6/uL (4.20-5.40); RED CELL DISTRIBUTION WIDTH 13.2 % (12.0-15.0)
[2024-12-09 05:09] LABS: CALCIUM 8.8 mg/dL (8.5-10.3); CREATININE 0.8 mg/dL (0.6-1.3); MAGNESIUM 2.2 mg/dL (1.7-2.3); POTASSIUM 3.8 mmol/L (3.5-4.5)
[2024-12-09] MEDS: polyethylene glycoL 3350 17 GM PACKET PO SCH (11:02)
--- NOTE | 2024-12-09 15:00 | ECHO Report ---
Version: 1 Study ID: [id number] [id number] Adult Echocardiogram Report Name: INDU ALONZO Study Date: 12/09/2024, 1: 31 PM BP: 150 / 76 mmHg [place] [facility] [place]01 HR: 54 bpm : 1945 (MM/DD/YYYY) Gender: Female Height: 66 in Age: 78 Years Weight: 176.37 lb Reason For Study: bradycardia, dizzy History: echo 06/05/22 EF 60-65% Procedure: A complete two-dimensional transthoracic echocardiogram was performed (2D, M- mode, Doppler and color flow Doppler). Indication: Evaluate cardiac and valve function. The study was done with the patient in the supine position, due to inability to lie on the left side. The underlying rhythm was bradycardia. Interpretation Summary The visual left ventricular ejection fraction is estimated at 55 to 60%. The right ventricle is mildly to moderately dilated. The right ventricular systolic function is normal. Mild tricuspid regurgitation present. There is mild valvular aortic stenosis. Left Ventricle: The left ventricle is normal in size. The visual left ventricular ejection fraction is estimated at 55 to 60%. Right Ventricle: The right ventricle is mildly to moderately dilated. The right ventricular systolic function is normal. The tricuspid annular plane systolic excursion (TAPSE) measurement is 2.8 cm. Aortic Valve: The aortic valve is mildly thickened. The aortic valve is trileaflet. The aortic valve maximum pressure gradient is 17 mmHg. The aortic valve peak velocity is 2.1 cm/sec. The aortic valve mean pressure gradient is 10 mmHg. The calculated aortic valve area is 1.4 cm2. There is mild valvular aortic stenosis. No aortic regurgitation is present. Mitral Valve: The mitral valve leaflets are mildly thickened. There is borderline mitral valve prolapse. No evidence of mitral stenosis is seen. There is trace mitral regurgitation. Tricuspid Valve: The tricuspid valve is structurally normal. There is no tricuspid stenosis. Mild tricuspid regurgitation present. Pulmonic Valve: The pulmonic valve cusps are thin and pliable; valve motion is normal. There is no pulmonic valvular stenosis. Mild pulmonic valvular regurgitation is present. Left Atrium: The left atrial volume indexed to body surface area is 27 ml/m2. This refers to the maximal volume measured prior to mitral valve opening. The left atrial size is normal. Right Atrium: The right atrium is mildly dilated. The inferior vena cava appears normal. The inferior vena cava is normal in diameter (<2.1cm) and there is complete collapse with inspiration (estimated right atrial pressure 0-5mmHg). Atrial Septum: There is no Doppler evidence for an atrial septal defect. Aorta: The diameter of the ascending aorta is 3.7 cm. The aortic root measures 3.4 cm in diameter. Pulmonary Artery: The pulmonary artery is normal size. The right ventricular systolic pressure is 24mmHg. Pericardium/Pleural Space: There is no pericardial effusion. No pleural effusion is seen. Doppler Measurements & Calculations Ao max P.8 mmHg Ao mean P.4 mmHg Ao V2 max: 205.2 cm/sec Ao V2 mean: 156.2 cm/sec Ao V2 VTI: 46.6 cm LV V1 max: 85.3 cm/sec LV V1 max P.9 mmHg LV V1 mean: 60.9 cm/sec LV V1 mean P.68 mmHg LV V1 VTI: 18.1 cm MV A max rishabh: 90.3 cm/sec MV dec time: 0.30 sec MV DVI-pr: 0.80 MV E max rishabh: 72.3 cm/sec PA max P.51 mmHg PA V2 max: 61.4 cm/sec RAP systole: 3.0 mmHg RV S Rishabh: 12.8 cm/sec TR max P.7 mmHg TR max rishabh: 227.4 cm/sec MMode/2D Measurements & Calculations Ao root diam: 3.4 cm EDV(MOD-sp4): 123.0 ml EF (est.): 55.1 % ESV(MOD-sp4): 61.5 ml Heart Rate: 54.0 BPM Height (metric): 167.6 cm IVSd: 1.11 cm LAV(MOD-bp): 51.9 ml LAV(MOD-bp) Indexed: 27.4 ml/m² LAV(MOD-sp2): 48.5 ml LAV(MOD-sp4): 47.9 ml LVIDd: 4.3 cm LVIDs: 2.9 cm LVLd ap4: 8.5 cm LVLs ap4: 6.7 cm LVOT diam: 2.05 cm LVPWd: 1.04 cm Systolic Pressure: 150.0 mmHg TAPSE: 2.8 cm Other Measurements & Calculations Ao mean P.4 mmHg Ao root diam: 3.4 cm Ao V2 max: 205.2 cm/sec Ao V2 mean: 156.2 cm/sec Ao V2 VTI: 46.6 cm TRACI(I,D): 1.28 cm² TRACI(V,D): 1.37 cm² BMI: 28.5 kilograms/m² BSA: 1.90 m² BSA([facility]): 1.95 m² Diastolic Pressure: 76.0 mmHg EDV(MOD-sp4): 123.0 ml EDV(Teich): 83.2 ml EF (est.): 55.1 % EF(MOD-sp4): 50.0 % EF(Teich): 59.9 % ESV(MOD-sp4): 61.5 ml ESV(Teich): 33.4 ml FS: 31.6 % Heart Rate: 54.0 BPM Height (metric): 167.6 cm IVSd: 1.11 cm LAV(MOD-bp): 51.9 ml LAV(MOD-bp) Indexed: 27.4 ml/m² LAV(MOD-sp2): 48.5 ml LAV(MOD-sp4): 47.9 ml LV V1 max: 85.3 cm/sec LV V1 mean: 60.9 cm/sec LV V1 mean P.68 mmHg LVIDd: 4.3 cm LVIDs: 2.9 cm LVLd ap4: 8.5 cm LVLs ap4: 6.7 cm LVOT area: 3.3 cm² LVOT diam: 2.05 cm LVPWd: 1.04 cm MV A max rishabh: 90.3 cm/sec MV dec time: 0.30 sec MV DVI-pr: 0.80 MV E max rishabh: 72.3 cm/sec MV E/A: 0.80 PA max P.51 mmHg PA V2 max: 61.4 cm/sec RAP systole: 3.0 mmHg RV S Rishabh: 12.8 cm/sec RVSP(TR): 23.7 mmHg SV(LVOT): 59.6 ml SV(MOD-sp4): 61.5 ml Systolic Pressure: 150.0 mmHg TAPSE: 2.8 cm TR max P.7 mmHg TR max rishabh: 227.4 cm/sec TV max P.7 mmHg Weight (metric): 80.0 kg Lat E/e': 9.4 Med E/e': 12.8 LA Vol Index: 26.0 ml/m² EDV(MOD-sp2): 107.3 ml EF Mod BP: 65.1 % ESV(MOD-sp2): 50.8 ml EF(MOD-sp2): 52.6 % EF(sp-el): 50.9 % Alejandro Burton MD 12/09/2024, 3: 00 PM Ordering Physician: Mercedez Yeager Referring Physician: Todd Jones Performed By: Shannen Norman RDCS
--- NOTE | 2024-12-09 15:18 | PROVIDER PROGRESS NOTE ---
Subjective Prog Note Date Prog Note Date: 12/09/24 Subjective Subjective: remains dizzy, at rest and with positional change. symptoms not associated with vital sign abnormalities. Current Medications Current Medications Current Medications: Current Medications Generic Name Dose Route Start Last Admin Trade Name Freq PRN Reason Stop Dose Admin Acetaminophen 650 mg 12/08/24 00:05 Acetaminophen 325 Mg Tablet PO Q4HR PRN Pain 1 to 4, or Fever Calcium Carbonate/Glycine 500 mg 12/08/24 23:00 12/09/24 08:43 Calcium Carbonate Chew 500 Mg Tablet PO 500 mg BID NUSRAT Administration Ceftriaxone Sodium 1 gm 12/08/24 01:13 12/09/24 08:43 Ceftriaxone 1 Gm Vial IVP 1 gm DAILY NUSRAT Administration Ondansetron HCl 4 mg 12/08/24 00:05 Ondansetron 4 Mg/2 Ml Vial IVP Q6HR PRN Nausea / Vomiting Ondansetron HCl 4 mg 12/08/24 00:05 12/09/24 11:02 Ondansetron Odt 4 Mg Tablet TL 4 mg Q6HR PRN Administration Nausea / Vomiting Polyethylene Glycol 17 gm 12/09/24 11:00 12/09/24 11:02 Polyethylene Glycol 3350 17 Gm Packet PO 17 gm DAILY NUSRAT Administration Sodium Chloride 10 ml 12/08/24 00:05 Sodium Chloride Flush 0.9% 10 Ml Syringe IVP PRN PRN NEEDED PER PROVIDER ORDERS Sodium Chloride 10 ml 12/08/24 01:00 12/09/24 08:43 Sodium Chloride Flush 0.9% 10 Ml Syringe IVP 10 ml 0100,0900,1700 NUSRAT Administration Objective Vital Signs/Intake & Output Reviewed Vital Signs: Yes Vital Signs: Vital Signs x48h Temp Pulse Resp BP Pulse Ox 12/09/24 13:05 69 145/90 H 12/09/24 13:05 55 L 164/83 H 12/09/24 13:00 36.6 C 61 18 148/79 H 92 12/09/24 08:10 36.5 C 52 L 20 150/76 H 94 Intake & Output: Intake & Output 12/06/24 12/07/24 12/08/24 12/09/24 23:59 23:59 23:59 23:59 Intake Total 1051 / 1051 1940 / 1940 610 / 610 Output Total 2050 / 2050 500 / 500 Balance 1051 / 1051 -110 / -110 110 / 110 Weight (kg) 81.6 kg 80 kg Objective General Appearance: positive No acute distress and Alert Eyes Bilateral: positive Normal inspection and Conjunctivae nml ENT: positive ENT inspection nml Neck: positive Nml inspection and Thyroid nml Respiratory: positive Chest non-tender, No respiratory distress and Breath sounds nml Cardiovascular: positive Regular rate & rhythm and No murmur Abdomen: positive Non-tender and No distention Back: positive Nml inspection Skin: positive Color nml Extremities: positive Non-tender and No pedal edema Neurologic/Psychiatric: positive Oriented x3 Lab Results 12/09/24 04:40 12/09/24 04:40 Other Labs: Lab Results x24hrs 12/09/24 Range/Units 04:40 WBC 8.0 (4.8-10.8) x10^3/uL RBC 5.13 (4.20-5.40) 10^6/uL Hgb 15.1 (12.0-16.0) g/dL Hct 47.5 H (37.0-47.0) % MCV 92.6 (81.0-99.0) fL MCH 29.4 (27.0-31.0) pg MCHC 31.8 L (32.0-36.0) g/dL RDW 13.2 (12.0-15.0) % Plt Count 214 (130-450) 10^3/uL MPV 9.5 (7.9-10.8) fL Neut # (Auto) 4.5 (1.5-6.6) 10^3/uL Lymph # (Auto) 2.7 (1.5-3.5) 10^3/uL Treasure # (Auto) 0.6 (0.0-1.0) 10^3/uL Eos # (Auto) 0.2 (0.0-0.7) 10^3/uL Baso # (Auto) 0.1 (0.0-0.1) 10^3/uL Absolute Nucleated RBC 0.00 x10^3/uL Nucleated RBC % 0.0 /100WBC Sodium 141 (135-145) mmol/L Potassium 3.8 (3.5-4.5) mmol/L Chloride 111 (101-111) mmol/L Carbon Dioxide 24 (21-32) mmol/L Anion Gap 6.0 (6-13) BUN 16 (6-20) mg/dL Creatinine 0.8 (0.6-1.3) mg/dL Estimated GFR (MDRD) 69 L (>89) Glucose 109 H (74-104) mg/dL Calcium 8.8 (8.5-10.3) mg/dL Magnesium 2.2 (1.7-2.3) mg/dL Assessment/Plan Problem List (1) Vertigo: Impression: Yesterday was feeling a bit better, today, not so much. there is no way that she can go home and safely navigate. there is not family to be with her 16/02. ENT exam revealed cerumen impaction on the right, this was irriagated and TM was visualized (HD #2). No change in her dizziness with this. This is a dizziness that she describes to me as "inside my head". She is not lightheaded or feeling as if she will pass out. CTA/CT head neg. MRI brain negative. Her tele strips were reviewed. first night had one 7 beat run of V tach which was not symptomatic. This AM, 0322, sleeping, one rate of 36. Her echocardiogram is not remarkable, with a rate of 54. I beleive this is not cardiac in origin. I think this is vertigo, and will likely be self limited. But, she needs to stay safe and avoid injury, as well as get regular ambulation to avoid deconditioning. she was able to ambulate with staff today, but was dizzy. I have asked PT to re evaluate her for a safe dc plan. recommendation is for SNF (2) HTN (hypertension): Impression: negative orthostatics. She had been hypertensive on admission, and now has come down to a normal BP for her age without treatment. . She is not on any blood pressure meds at home. She has had difficulty obtaining primary care. (3) UTI (urinary tract infection): Impression: Perez sensitive E coli. will continue rocephin and change to po abx on dc. total of 7 days. She is day 2 of rocephin. encouraged primary care followup for possible hormone replacement. We have discussed the mandy of urinary tract infections in patients with atrophic vaginitis. I have spent 38 minutes in the care of this patient today. This includes time [id number], review and ordering of diagnostic imaging and laboratory studies. Monitoring the patient's signs symptoms, evaluation of medication effectiveness and patient's response to treatment.
--- NOTE | 2024-12-09 16:10 | OT Plan of Care ---
OT Plan of Care OT Plan of Care: Diagnosis Diagnosis dizziness Diagnosis stroke r/o Chief Complaint dizziness Onset of Chief Complaint 4 weks [employer]OC[employer]ATE Surgical History (Updated 12/06/24 @ 11:25 by Garrison Ramey RN) H/O hernia repair Medical History (Updated 12/08/24 @ 22:19 by THU Cassidy) Chronic back pain Arthritis HTN (hypertension) Assessment Assessment Patient is a 78 y/o with a h/o hypertension presented to the ED for evaluation of dizziness x 4 weeks. She explained that initially episodes were precipitated with movement now but now are occurring at rest. She denied any change in vision, chest pain, tinnitus. Her workup has included, CT, CTA , MRI, EKG basic labs and have been unremarkable. Seen for OT consult 2/2 ? vertigo. Met sitting in chair A&Ox4. Denied dizziness and nausea at rest. BP stable 160's/80 's; HR 50-75 BMP during mobility Mild increased dizziness with standing and ambulation however non descript of typical vertigo presentation. Pt describing internal dizziness and nausea vs positional change triggers. Noted minimal nystagmus with VOR/occlusion testing. Rec cont work up with cardiac, ENT, and neurology. Currently MIN A ambulation and ADLs with slowed pace 2/2 dizziness - cues for compensatory techniques and safety. Overall presents with decreased endurance, activity tolerance and ADL status. Will benefit from cont OT services during acute stay. Rec d/c to SNF. Goals - Activities of Daily Living Improve Upper Extremity Modified Independent Dressing to: Improve Lower Extremity Modified Independent Dressing to: Improve Grooming/Hygiene to: Modified Independent Improve Bathing to: Modified Independent Improve Toileting to: Modified Independent Plan Treatment Frequency 1x/day Duration Until discharge -Discharge Recommendations Discharge Location Previous Living Situation Support/Services Needed Home Health O.T. Transport Needs at Discharge Wheelchair van
--- NOTE | 2024-12-09 16:31 | PT Plan of Care ---
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 Pt was admitted for dizziness, seen for PT eval yesterday and extensive imaging performed since admit. All indicate that dizziness is not BPPV nor CVA related. Today pt had echo and hospitalist reports her dizziness does not present as cardiac. Of note, pt has complex R ear history including surgery in childhood, tinnitus and balance disturbances related to R ear issues. She has not seen an ENT in recent history. Upon re-eval today, pt continues to present without s/sx of BPPV and [id number] test negative. Dizziness is unchanging with positional changes and head turns but does increase "a little" with increased HR. During standing marches HR increased to 81bpm and pt reports increased dizziness. Once seated after this activity pt reports increased dizziness and HR decreased to 50s within <1 minute. Pt is a moderate to high fall risk and reports fear of falling. Given ongoing dizziness without clear cause and significantly limited mobility, PT is now rec dc to SNF. GOALS Improve supine to sit to:: Modified Independent Improve sit to stand to:: Modified Independent Improve pivot transfer ability to:: Modified Independent Improve sit to supine to:: Modified Independent Improve gait ability to:: SBA Advance Assistive Device to:: Front Wheeled Walker Increase distance walked to (in feet):: 100 PLAN Frequency: 1-2x/day Duration: Until goals are met DISCHARGE RECOMMENDATIONS Discharge Location: [facility] Facility Support/Services Needed: With assist DC Equipment Recommended: Front wheeled walker Other Discharge Equipment: may need shower bench Transport Needs at Discharge: Wheelchair van
[2024-12-09] MEDS ORDERED: DICLOFENAC SODIUM 1% GEL 50 GM TUBE TOP PRN (18:56)
[2024-12-10 05:33] LABS: BASOPHILS % (AUTO) 0.4 %; EOSINOPHILS # (AUTO) 0.1 10^3/uL (0.0-0.7); EOSINOPHILS % (AUTO) 1.7 %; HCT - HEMATOCRIT 44.8 % (37.0-47.0); HGB - HEMOGLOBIN 14.8 g/dL (12.0-16.0); LYMPHOCYTES # (AUTO) 2.4 10^3/uL (1.5-3.5); LYMPHOCYTES % (AUTO) 33.7 %; MEAN CORPUSCULAR HEMOGLOBIN 30.5 pg (27.0-31.0); MEAN CORPUSCULAR VOLUME 92.2 fL (81.0-99.0); MEAN PLATELET VOLUME 9.8 fL (7.9-10.8); MONOCYTES # (AUTO) 0.7 10^3/uL (0.0-1.0); MONOCYTES % (AUTO) 9.4 %; NEUTROPHILS # (AUTO) 3.9 10^3/uL (1.5-6.6); NEUTROPHILS % (AUTO) 54.7 %; PLT - PLATELET COUNT 195 10^3/uL (130-450); RED BLOOD COUNT 4.86 10^6/uL (4.20-5.40); RED CELL DISTRIBUTION WIDTH 13.2 % (12.0-15.0); WHITE BLOOD COUNT 7.1 x10^3/uL (4.8-10.8)
[2024-12-10 05:54] LABS: CALCIUM 8.9 mg/dL (8.5-10.3); CREATININE 0.9 mg/dL (0.6-1.3); POTASSIUM 3.9 mmol/L (3.5-4.5)
[2024-12-10] MEDS ORDERED: [UNRECOGNIZED DRUG - OTHER] PO SCH (09:30)
[2024-12-10] MEDS ORDERED: CALCIUM CARBONATE PO SCH (09:30)
[2024-12-10] MEDS: lisinopriL 20 MG TABLET PO SCH (11:05)
--- NOTE | 2024-12-10 15:19 | PROVIDER PROGRESS NOTE ---
Subjective Prog Note Date Prog Note Date: 12/10/24 Subjective Pt reports feeling: No change Current Medications Current Medications Current Medications: Current Medications Generic Name Dose Route Start Last Admin Trade Name Violet PRN Reason Stop Dose Admin Acetaminophen 650 mg 12/08/24 00:05 Acetaminophen 325 Mg Tablet PO Q4HR PRN Pain 1 to 4, or Fever Calcium Carbonate/Glycine 500 mg 12/08/24 23:00 12/10/24 09:08 Calcium Carbonate Chew 500 Mg Tablet PO 500 mg BID NUSRAT Administration Ceftriaxone Sodium 1 gm 12/08/24 01:13 12/10/24 09:08 Ceftriaxone 1 Gm Vial IVP 1 gm DAILY NUSRAT Administration Diclofenac Sodium 2 gm 12/09/24 18:56 Diclofenac Sodium 1% Gel 50 Gm Tube TOP QID PRN Mild Pain (Level 1-3) Lisinopril 20 mg 12/10/24 10:00 12/10/24 11:05 Lisinopril 20 Mg Tablet PO 20 mg DAILY NUSRAT Administration Ondansetron HCl 4 mg 12/08/24 00:05 Ondansetron 4 Mg/2 Ml Vial IVP Q6HR PRN Nausea / Vomiting Ondansetron HCl 4 mg 12/08/24 00:05 12/09/24 20:12 Ondansetron Odt 4 Mg Tablet TL 4 mg Q6HR PRN Administration Nausea / Vomiting Polyethylene Glycol 17 gm 12/09/24 11:00 12/10/24 07:52 Polyethylene Glycol 3350 17 Gm Packet PO Not Given DAILY NUSRAT Sodium Chloride 10 ml 12/08/24 00:05 Sodium Chloride Flush 0.9% 10 Ml Syringe IVP PRN PRN NEEDED PER PROVIDER ORDERS Sodium Chloride 10 ml 12/08/24 01:00 12/10/24 09:56 Sodium Chloride Flush 0.9% 10 Ml Syringe IVP 10 ml 0100,0900,1700 NUSRAT Administration Objective Vital Signs/Intake & Output Reviewed Vital Signs: Yes Vital Signs: Vital Signs x48h Temp Pulse Resp BP BP Pulse Ox 12/10/24 11:35 58 L 144/86 H 12/10/24 11:30 36.7 C 58 L 20 198/96 H 93 12/10/24 08:15 36.6 C 53 L 20 176/95 H 94 Intake & Output: Intake & Output 12/07/24 12/08/24 12/09/24 12/10/24 23:59 23:59 23:59 23:59 Intake Total 1051 / 1051 1939 / 1939 1080 / 1080 618 / 618 Output Total 2049 500 / 500 500 / 500 Balance 1051 / 1051 -110 / -110 580 / 580 118 / 118 Weight (kg) 81.6 kg 80 kg Objective General Appearance: positive No acute distress and Alert Eyes Bilateral: positive Normal inspection and Conjunctivae nml ENT: positive ENT inspection nml Neck: positive Nml inspection and Thyroid nml Respiratory: positive Chest non-tender, No respiratory distress and Breath sounds nml Cardiovascular: positive Regular rate & rhythm and No murmur Abdomen: positive Non-tender and No distention Back: positive Nml inspection Skin: positive Color nml Extremities: positive Non-tender and No pedal edema Neurologic/Psychiatric: positive Oriented x3 Lab Results 12/10/24 04:49 12/10/24 04:49 Other Labs: Lab Results x24hrs 12/10/24 Range/Units 04:49 WBC 7.1 (4.8-10.8) x10^3/uL RBC 4.86 (4.20-5.40) 10^6/uL Hgb 14.8 (12.0-16.0) g/dL Hct 44.8 (37.0-47.0) % MCV 92.2 (81.0-99.0) fL MCH 30.5 (27.0-31.0) pg MCHC 33.0 (32.0-36.0) g/dL RDW 13.2 (12.0-15.0) % Plt Count 195 (130-450) 10^3/uL MPV 9.8 (7.9-10.8) fL Neut # (Auto) 3.9 (1.5-6.6) 10^3/uL Lymph # (Auto) 2.4 (1.5-3.5) 10^3/uL [place] # (Auto) 0.7 (0.0-1.0) 10^3/uL Eos # (Auto) 0.1 (0.0-0.7) 10^3/uL Baso # (Auto) 0.0 (0.0-0.1) 10^3/uL Absolute Nucleated RBC 0.00 x10^3/uL Nucleated RBC % 0.0 /100WBC Sodium 141 (135-145) mmol/L Potassium 3.9 (3.5-4.5) mmol/L Chloride 109 (101-111) mmol/L Carbon Dioxide 27 (21-32) mmol/L Anion Gap 5.0 L (6-13) BUN 14 (6-20) mg/dL Creatinine 0.9 (0.6-1.3) mg/dL Estimated GFR (MDRD) 60 L (>89) Glucose 111 H (74-104) mg/dL Calcium 8.9 (8.5-10.3) mg/dL Assessment/Plan Problem List (1) Vertigo: Impression: CT/CTA head negative. MRI brain negative Echocardiogram unremarkable Telemetry strips with only 1 run of V. tach and 1 episode of bradycardia Cerumen impaction on the right which was irrigated. This did not impact her dizziness I believe that this is vertigo. She reports history of same, and had worked with physical therapy before. She describes a dizziness in her head and then her eyes. On further discussion, I believe this is balance and room spinning dizziness from vertigo, respectively. She is unsafe to go home, will need SNF at discharge. She is medically cleared pending placement today (2) HTN (hypertension): Impression: BP 176/95 On morning check. I started her on lisinopril 20 mg p.o. daily (3) UTI (urinary tract infection): Impression: Perez sensitive E coli. will continue rocephin and change to po abx on dc. total of 7 days. She is day 3 of rocephin
[2024-12-11 06:17] LABS: BASOPHILS % (AUTO) 0.4 %; EOSINOPHILS # (AUTO) 0.2 10^3/uL (0.0-0.7); EOSINOPHILS % (AUTO) 1.8 %; HCT - HEMATOCRIT 50.8 % (37.0-47.0); HGB - HEMOGLOBIN 15.9 g/dL (12.0-16.0); LYMPHOCYTES # (AUTO) 3.3 10^3/uL (1.5-3.5); LYMPHOCYTES % (AUTO) 36.5 %; MEAN CORPUSCULAR HEMOGLOBIN 29.1 pg (27.0-31.0); MEAN CORPUSCULAR HGB CONC 31.3 g/dL (32.0-36.0); MONOCYTES # (AUTO) 0.7 10^3/uL (0.0-1.0); MONOCYTES % (AUTO) 7.5 %; NEUTROPHILS # (AUTO) 4.8 10^3/uL (1.5-6.6); NEUTROPHILS % (AUTO) 53.6 %; PLT - PLATELET COUNT 195 10^3/uL (130-450); RED BLOOD COUNT 5.46 10^6/uL (4.20-5.40); RED CELL DISTRIBUTION WIDTH 13.2 % (12.0-15.0); WHITE BLOOD COUNT 8.9 x10^3/uL (4.8-10.8)
[2024-12-11 06:33] LABS: CALCIUM 9.7 mg/dL (8.5-10.3); CREATININE 0.9 mg/dL (0.6-1.3); POTASSIUM 4.1 mmol/L (3.5-4.5)
[2024-12-11] MEDS: cephALEXin 500 MG CAPSULE PO SCH (10:35)
--- NOTE | 2024-12-11 11:15 | PROVIDER PROGRESS NOTE ---
Subjective Prog Note Date Prog Note Date: 12/11/24 Subjective Pt reports feeling: No change Current Medications Current Medications Current Medications: Current Medications Generic Name Dose Route Start Last Admin Trade Name Violet PRN Reason Stop Dose Admin Acetaminophen 650 mg 12/08/24 00:05 Acetaminophen 325 Mg Tablet PO Q4HR PRN Pain 1 to 4, or Fever Amitriptyline HCl 10 mg 12/11/24 21:00 Amitriptyline 10 Mg Tablet PO QPM NUSRAT Calcium Carbonate/Glycine 500 mg 12/08/24 23:00 12/11/24 08:58 Calcium Carbonate Chew 500 Mg Tablet PO 500 mg BID NUSRAT Administration Cephalexin 500 mg 12/11/24 11:00 12/11/24 10:35 Cephalexin 500 Mg Capsule PO 500 mg BID NUSRAT Administration Diclofenac Sodium 2 gm 12/09/24 18:56 Diclofenac Sodium 1% Gel 50 Gm Tube TOP QID PRN Mild Pain (Level 1-3) Lisinopril 20 mg 12/10/24 10:00 12/11/24 08:58 Lisinopril 20 Mg Tablet PO 20 mg DAILY NUSRAT Administration Ondansetron HCl 4 mg 12/08/24 00:05 Ondansetron 4 Mg/2 Ml Vial IVP Q6HR PRN Nausea / Vomiting Ondansetron HCl 4 mg 12/08/24 00:05 12/11/24 09:06 Ondansetron Odt 4 Mg Tablet TL 4 mg Q6HR PRN Administration Nausea / Vomiting Polyethylene Glycol 17 gm 12/09/24 11:00 12/11/24 07:48 Polyethylene Glycol 3350 17 Gm Packet PO Not Given DAILY [facility] Sodium Chloride 10 ml 12/08/24 00:05 Sodium Chloride Flush 0.9% 10 Ml Syringe IVP PRN PRN NEEDED PER PROVIDER ORDERS Sodium Chloride 10 ml 12/08/24 01:00 12/11/24 08:58 Sodium Chloride Flush 0.9% 10 Ml Syringe IVP 10 ml 0100,0900,1700 NUSRAT Administration Objective Vital Signs/Intake & Output Reviewed Vital Signs: Yes Vital Signs: Vital Signs x48h Temp Pulse Resp BP Pulse Ox 12/11/24 08:00 36.6 C 51 L 16 139/75 H 94 Intake & Output: Intake & Output 12/08/24 12/09/24 12/10/24 12/11/24 23:59 23:59 23:59 23:59 Intake Total 1939 1080 / 1080 1186 / 1186 340 / 340 Output Total 2049 500 / 500 500 / 500 200 / 200 Balance -110 / -110 580 / 580 686 / 686 140 / 140 Weight (kg) 80 kg Objective General Appearance: positive No acute distress and Alert Eyes Bilateral: positive Normal inspection and Conjunctivae nml ENT: positive ENT inspection nml Neck: positive Nml inspection and Thyroid nml Respiratory: positive Chest non-tender, No respiratory distress and Breath sounds nml Cardiovascular: positive Regular rate & rhythm and No murmur Abdomen: positive Non-tender and No distention Back: positive Nml inspection Skin: positive Color nml Extremities: positive Non-tender and No pedal edema Neurologic/Psychiatric: positive Oriented x3 Lab Results 12/11/24 06:06 12/11/24 06:06 Other Labs: Lab Results x24hrs 12/11/24 Range/Units 06:06 WBC 8.9 (4.8-10.8) x10^3/uL RBC 5.46 H (4.20-5.40) 10^6/uL Hgb 15.9 (12.0-16.0) g/dL Hct 50.8 H (37.0-47.0) % MCV 93.0 (81.0-99.0) fL MCH 29.1 (27.0-31.0) pg MCHC 31.3 L (32.0-36.0) g/dL RDW 13.2 (12.0-15.0) % Plt Count 195 (130-450) 10^3/uL MPV 10.0 (7.9-10.8) fL Neut # (Auto) 4.8 (1.5-6.6) 10^3/uL Lymph # (Auto) 3.3 (1.5-3.5) 10^3/uL [place] # (Auto) 0.7 (0.0-1.0) 10^3/uL Eos # (Auto) 0.2 (0.0-0.7) 10^3/uL Baso # (Auto) 0.0 (0.0-0.1) 10^3/uL Absolute Nucleated RBC 0.00 x10^3/uL Nucleated RBC % 0.0 /100WBC Sodium 140 (135-145) mmol/L Potassium 4.1 (3.5-4.5) mmol/L Chloride 105 (101-111) mmol/L Carbon Dioxide 29 (21-32) mmol/L Anion Gap 6.0 (6-13) BUN 13 (6-20) mg/dL Creatinine 0.9 (0.6-1.3) mg/dL Estimated GFR (MDRD) 60 L (>89) Glucose 111 H (74-104) mg/dL Calcium 9.7 (8.5-10.3) mg/dL Assessment/Plan Problem List (1) Vertigo: Impression: CT/CTA head negative. MRI brain negative Echocardiogram unremarkable Telemetry strips with only 1 run of V. tach and 1 episode of bradycardia Cerumen impaction on the right which was irrigated. This did not impact her dizziness I believe that this is vertigo. She reports history of same, and had worked with physical therapy before. She describes a dizziness in her head and then her eyes. On further discussion, I believe this is balance and room spinning dizziness from vertigo, respectively. She is unsafe to go home, will need SNF at discharge. She is medically cleared pending placement today 12/11/2024: Remains medically clear for discharge. I started her on amitriptyline out of suspicion for vestibular migraine. She will continue to work with physical therapy while she is here. She will benefit from a neurology/vestibular specialist consult in the outpatient setting (2) HTN (hypertension): Impression: BP 139/75. Continue lisinopril 20 mg p.o. daily (3) UTI (urinary tract infection): Impression: Perez sensitive E coli. Last IV access, no need for continued IV as she is medically clear Changed her to Keflex Keflex course will continue through tomorrow
[2024-12-11] MEDS: AMITRIPTYLINE 10 MG TABLET PO SCH (20:41)
[2024-12-12 05:02] LABS: BASOPHILS % (AUTO) 0.5 %; EOSINOPHILS # (AUTO) 0.2 10^3/uL (0.0-0.7); EOSINOPHILS % (AUTO) 2.1 %; HCT - HEMATOCRIT 44.2 % (37.0-47.0); HGB - HEMOGLOBIN 14.4 g/dL (12.0-16.0); LYMPHOCYTES # (AUTO) 2.6 10^3/uL (1.5-3.5); LYMPHOCYTES % (AUTO) 31.7 %; MEAN CORPUSCULAR HEMOGLOBIN 29.7 pg (27.0-31.0); MEAN CORPUSCULAR HGB CONC 32.6 g/dL (32.0-36.0); MEAN CORPUSCULAR VOLUME 91.1 fL (81.0-99.0); MEAN PLATELET VOLUME 9.9 fL (7.9-10.8); MONOCYTES # (AUTO) 0.8 10^3/uL (0.0-1.0); MONOCYTES % (AUTO) 9.5 %; NEUTROPHILS # (AUTO) 4.6 10^3/uL (1.5-6.6); PLT - PLATELET COUNT 180 10^3/uL (130-450); RED BLOOD COUNT 4.85 10^6/uL (4.20-5.40); RED CELL DISTRIBUTION WIDTH 13.1 % (12.0-15.0); WHITE BLOOD COUNT 8.2 x10^3/uL (4.8-10.8)
[2024-12-12 05:16] LABS: CALCIUM 8.9 mg/dL (8.5-10.3); CREATININE 0.9 mg/dL (0.6-1.3)
--- NOTE | 2024-12-12 14:21 | PROVIDER PROGRESS NOTE ---
Subjective Prog Note Date Prog Note Date: 12/12/24 Subjective Pt reports feeling: No change Current Medications Current Medications Current Medications: Current Medications Generic Name Dose Route Start Last Admin Trade Name Freq PRN Reason Stop Dose Admin Acetaminophen 650 mg 12/08/24 00:05 Acetaminophen 325 Mg Tablet PO Q4HR PRN Pain 1 to 4, or Fever Amitriptyline HCl 10 mg 12/11/24 21:00 12/11/24 20:41 Amitriptyline 10 Mg Tablet PO 10 mg QPM NUSRAT Administration Calcium Carbonate/Glycine 500 mg 12/08/24 23:00 12/12/24 08:12 Calcium Carbonate Chew 500 Mg Tablet PO 500 mg BID NUSRAT Administration Cephalexin 500 mg 12/11/24 11:00 12/12/24 08:12 Cephalexin 500 Mg Capsule PO 500 mg BID NUSRAT Administration Diclofenac Sodium 2 gm 12/09/24 18:56 Diclofenac Sodium 1% Gel 50 Gm Tube TOP QID PRN Mild Pain (Level 1-3) Lisinopril 20 mg 12/10/24 10:00 12/12/24 08:12 Lisinopril 20 Mg Tablet PO 20 mg DAILY NUSRAT Administration Ondansetron HCl 4 mg 12/08/24 00:05 Ondansetron 4 Mg/2 Ml Vial IVP Q6HR PRN Nausea / Vomiting Ondansetron HCl 4 mg 12/08/24 00:05 12/11/24 09:06 Ondansetron Odt 4 Mg Tablet TL 4 mg Q6HR PRN Administration Nausea / Vomiting Polyethylene Glycol 17 gm 12/09/24 11:00 12/12/24 09:10 Polyethylene Glycol 3350 17 Gm Packet PO Not Given DAILY [facility] Sodium Chloride 10 ml 12/08/24 00:05 Sodium Chloride Flush 0.9% 10 Ml Syringe IVP PRN PRN NEEDED PER PROVIDER ORDERS Sodium Chloride 10 ml 12/08/24 01:00 12/12/24 09:10 Sodium Chloride Flush 0.9% 10 Ml Syringe IVP Not Given 0100,0900,1700 [facility] Objective Vital Signs/Intake & Output Reviewed Vital Signs: Yes Vital Signs: Vital Signs x48h Temp Pulse Resp BP Pulse Ox 12/12/24 08:14 36.6 C 55 L 20 153/79 H 95 Intake & Output: Intake & Output 12/09/24 12/10/24 12/11/24 12/12/24 23:59 23:59 23:59 23:59 Intake Total 1080 / 1080 1186 / 1186 830 / 830 480 / 480 Output Total 500 / 500 500 / 500 700 / 700 475 / 475 Balance 580 / 580 686 / 686 130 / 130 5 / 5 Objective General Appearance: positive No acute distress and Alert Eyes Bilateral: positive Normal inspection and Conjunctivae nml ENT: positive ENT inspection nml Neck: positive Nml inspection and Thyroid nml Respiratory: positive Chest non-tender, No respiratory distress and Breath sounds nml Cardiovascular: positive Regular rate & rhythm and No murmur Abdomen: positive Non-tender and No distention Back: positive Nml inspection Skin: positive Color nml Extremities: positive Non-tender and No pedal edema Neurologic/Psychiatric: positive Oriented x3 Lab Results 12/12/24 04:18 12/12/24 04:18 Other Labs: Lab Results x24hrs 12/12/24 Range/Units 04:18 WBC 8.2 (4.8-10.8) x10^3/uL RBC 4.85 (4.20-5.40) 10^6/uL Hgb 14.4 (12.0-16.0) g/dL Hct 44.2 (37.0-47.0) % MCV 91.1 (81.0-99.0) fL MCH 29.7 (27.0-31.0) pg MCHC 32.6 (32.0-36.0) g/dL RDW 13.1 (12.0-15.0) % Plt Count 180 (130-450) 10^3/uL MPV 9.9 (7.9-10.8) fL Neut # (Auto) 4.6 (1.5-6.6) 10^3/uL Lymph # (Auto) 2.6 (1.5-3.5) 10^3/uL [place] # (Auto) 0.8 (0.0-1.0) 10^3/uL Eos # (Auto) 0.2 (0.0-0.7) 10^3/uL Baso # (Auto) 0.0 (0.0-0.1) 10^3/uL Absolute Nucleated RBC 0.00 x10^3/uL Nucleated RBC % 0.0 /100WBC Sodium 140 (135-145) mmol/L Potassium 4.0 (3.5-4.5) mmol/L Chloride 107 (101-111) mmol/L Carbon Dioxide 27 (21-32) mmol/L Anion Gap 6.0 (6-13) BUN 14 (6-20) mg/dL Creatinine 0.9 (0.6-1.3) mg/dL Estimated GFR (MDRD) 60 L (>89) Glucose 107 H (74-104) mg/dL Calcium 8.9 (8.5-10.3) mg/dL Assessment/Plan Problem List (1) Vertigo: Impression: CT/CTA head negative. MRI brain negative Echocardiogram unremarkable Telemetry strips with only 1 run of V. tach and 1 episode of bradycardia Cerumen impaction on the right which was irrigated. This did not impact her dizziness I believe that this is vertigo. She reports history of same, and had worked with physical therapy before. She describes a dizziness in her head and then her eyes. On further discussion, I believe this is balance and room spinning dizziness from vertigo, respectively. She is unsafe to go home, will need SNF at discharge. She is medically cleared pending placement today 12/11/2024: Remains medically clear for discharge. I started her on amitriptyline out of suspicion for vestibular migraine. She will continue to work with physical therapy while she is here. She will benefit from a neurology/vestibular specialist consult in the outpatient setting 12/12/2024: Remains medically clear. Vertigo symptoms slightly improved after amitriptyline. Continue PT/OT. Continue amitriptyline (2) HTN (hypertension): Impression: BP 153/79. Continue lisinopril 20 mg p.o. daily (3) UTI (urinary tract infection): Impression: Perez sensitive E coli. Lost IV access, no need for continued IV as she is medically clear Changed her to Keflex Today is last day of Keflex
[2024-12-13 04:40] LABS: BASOPHILS % (AUTO) 0.4 %; EOSINOPHILS # (AUTO) 0.2 10^3/uL (0.0-0.7); EOSINOPHILS % (AUTO) 1.8 %; HCT - HEMATOCRIT 43.1 % (37.0-47.0); HGB - HEMOGLOBIN 14.1 g/dL (12.0-16.0); LYMPHOCYTES # (AUTO) 2.7 10^3/uL (1.5-3.5); LYMPHOCYTES % (AUTO) 29.8 %; MEAN CORPUSCULAR HEMOGLOBIN 30.1 pg (27.0-31.0); MEAN CORPUSCULAR HGB CONC 32.7 g/dL (32.0-36.0); MEAN CORPUSCULAR VOLUME 92.1 fL (81.0-99.0); MONOCYTES # (AUTO) 0.8 10^3/uL (0.0-1.0); NEUTROPHILS # (AUTO) 5.3 10^3/uL (1.5-6.6); NEUTROPHILS % (AUTO) 58.8 %; PLT - PLATELET COUNT 183 10^3/uL (130-450); RED BLOOD COUNT 4.68 10^6/uL (4.20-5.40)
[2024-12-13 04:54] LABS: CALCIUM 8.9 mg/dL (8.5-10.3); CREATININE 0.8 mg/dL (0.6-1.3); POTASSIUM 4.2 mmol/L (3.5-4.5)
--- NOTE | 2024-12-13 15:06 | PROVIDER PROGRESS NOTE ---
Subjective Prog Note Date Prog Note Date: 12/13/24 Subjective Pt reports feeling: No change Current Medications Current Medications Current Medications: Current Medications Generic Name Dose Route Start Last Admin Trade Name Freq PRN Reason Stop Dose Admin Acetaminophen 650 mg 12/08/24 00:05 Acetaminophen 325 Mg Tablet PO Q4HR PRN Pain 1 to 4, or Fever Amitriptyline HCl 10 mg 12/11/24 21:00 12/12/24 20:38 Amitriptyline 10 Mg Tablet PO 10 mg QPM NUSRAT Administration Calcium Carbonate/Glycine 500 mg 12/08/24 23:00 12/13/24 09:07 Calcium Carbonate Chew 500 Mg Tablet PO Not Given BID NUSRAT Cephalexin 500 mg 12/11/24 11:00 12/13/24 08:24 Cephalexin 500 Mg Capsule PO 500 mg BID NUSRAT Administration Diclofenac Sodium 2 gm 12/09/24 18:56 Diclofenac Sodium 1% Gel 50 Gm Tube TOP QID PRN Mild Pain (Level 1-3) Lisinopril 20 mg 12/10/24 10:00 12/13/24 08:24 Lisinopril 20 Mg Tablet PO 20 mg DAILY NUSRAT Administration Ondansetron HCl 4 mg 12/08/24 00:05 Ondansetron 4 Mg/2 Ml Vial IVP Q6HR PRN Nausea / Vomiting Ondansetron HCl 4 mg 12/08/24 00:05 12/11/24 09:06 Ondansetron Odt 4 Mg Tablet TL 4 mg Q6HR PRN Administration Nausea / Vomiting Polyethylene Glycol 17 gm 12/09/24 11:00 12/13/24 09:07 Polyethylene Glycol 3350 17 Gm Packet PO Not Given DAILY [facility] Sodium Chloride 10 ml 12/08/24 00:05 Sodium Chloride Flush 0.9% 10 Ml Syringe IVP PRN PRN NEEDED PER PROVIDER ORDERS Sodium Chloride 10 ml 12/08/24 01:00 12/13/24 09:08 Sodium Chloride Flush 0.9% 10 Ml Syringe IVP Not Given 0100,0900,1700 [facility] Objective Vital Signs/Intake & Output Reviewed Vital Signs: Yes Vital Signs: Vital Signs x48h Temp Pulse Resp BP Pulse Ox 12/13/24 08:20 36.8 C 64 20 152/83 H 96 Intake & Output: Intake & Output 12/10/24 12/11/24 12/12/24 12/13/24 23:59 23:59 23:59 23:59 Intake Total 1186 / 1186 830 / 830 1270 / 1270 720 / 720 Output Total 500 / 500 700 / 700 525 / 525 225 / 225 Balance 686 / 686 130 / 130 745 / 745 495 / 495 Objective General Appearance: positive No acute distress and Alert Eyes Bilateral: positive Normal inspection and Conjunctivae nml ENT: positive ENT inspection nml Neck: positive Nml inspection and Thyroid nml Respiratory: positive Chest non-tender, No respiratory distress and Breath sounds nml Cardiovascular: positive Regular rate & rhythm and No murmur Abdomen: positive Non-tender and No distention Back: positive Nml inspection Skin: positive Color nml Extremities: positive Non-tender and No pedal edema Neurologic/Psychiatric: positive Oriented x3 Lab Results 12/13/24 04:21 12/13/24 04:21 Other Labs: Lab Results x24hrs 12/13/24 Range/Units 04:21 WBC 9.0 (4.8-10.8) x10^3/uL RBC 4.68 (4.20-5.40) 10^6/uL Hgb 14.1 (12.0-16.0) g/dL Hct 43.1 (37.0-47.0) % MCV 92.1 (81.0-99.0) fL MCH 30.1 (27.0-31.0) pg MCHC 32.7 (32.0-36.0) g/dL RDW 13.0 (12.0-15.0) % Plt Count 183 (130-450) 10^3/uL MPV 10.0 (7.9-10.8) fL Neut # (Auto) 5.3 (1.5-6.6) 10^3/uL Lymph # (Auto) 2.7 (1.5-3.5) 10^3/uL [place] # (Auto) 0.8 (0.0-1.0) 10^3/uL Eos # (Auto) 0.2 (0.0-0.7) 10^3/uL Baso # (Auto) 0.0 (0.0-0.1) 10^3/uL Absolute Nucleated RBC 0.00 x10^3/uL Nucleated RBC % 0.0 /100WBC Sodium 139 (135-145) mmol/L Potassium 4.2 (3.5-4.5) mmol/L Chloride 107 (101-111) mmol/L Carbon Dioxide 27 (21-32) mmol/L Anion Gap 5.0 L (6-13) BUN 13 (6-20) mg/dL Creatinine 0.8 (0.6-1.3) mg/dL Estimated GFR (MDRD) 69 L (>89) Glucose 110 H (74-104) mg/dL Calcium 8.9 (8.5-10.3) mg/dL Assessment/Plan Problem List (1) Vertigo: Impression: CT/CTA head negative. MRI brain negative Echocardiogram unremarkable Telemetry strips with only 1 run of V. tach and 1 episode of bradycardia Cerumen impaction on the right which was irrigated. This did not impact her dizziness I believe that this is vertigo. She reports history of same, and had worked with physical therapy before. She describes a dizziness in her head and then her eyes. On further discussion, I believe this is balance and room spinning dizziness from vertigo, respectively. She is unsafe to go home, will need SNF at discharge. She is medically cleared pending placement today 12/11/2024: Remains medically clear for discharge. I started her on amitriptyline out of suspicion for vestibular migraine. She will continue to work with physical therapy while she is here. She will benefit from a neurology/vestibular specialist consult in the outpatient setting 12/12/2024: Remains medically clear. Vertigo symptoms slightly improved after amitriptyline. Continue PT/OT. Continue amitriptyline 12/13/2024: Remains clear. Vertigo symptoms unchanged. PT/OT still recommending SNF. Continue amitriptyline (2) HTN (hypertension): Impression: BP 152/83. Continue lisinopril 20 mg p.o. daily (3) UTI (urinary tract infection): Impression: Perez sensitive E coli. Completed course of cephalosporin treatment
[2024-12-13 23:15] VITALS: TEMP 97.9
[2024-12-14 05:49] LABS: BASOPHILS # (AUTO) 0.1 10^3/uL (0.0-0.1); BASOPHILS % (AUTO) 0.6 %; EOSINOPHILS # (AUTO) 0.2 10^3/uL (0.0-0.7); EOSINOPHILS % (AUTO) 1.9 %; HCT - HEMATOCRIT 44.8 % (37.0-47.0); HGB - HEMOGLOBIN 14.6 g/dL (12.0-16.0); LYMPHOCYTES # (AUTO) 2.4 10^3/uL (1.5-3.5); LYMPHOCYTES % (AUTO) 31.7 %; MEAN CORPUSCULAR HGB CONC 32.6 g/dL (32.0-36.0); MONOCYTES # (AUTO) 0.6 10^3/uL (0.0-1.0); MONOCYTES % (AUTO) 8.3 %; NEUTROPHILS # (AUTO) 4.4 10^3/uL (1.5-6.6); NEUTROPHILS % (AUTO) 57.2 %; PLT - PLATELET COUNT 185 10^3/uL (130-450); RED BLOOD COUNT 4.87 10^6/uL (4.20-5.40); RED CELL DISTRIBUTION WIDTH 13.2 % (12.0-15.0); WHITE BLOOD COUNT 7.7 x10^3/uL (4.8-10.8)
[2024-12-14 06:05] LABS: CREATININE 0.8 mg/dL (0.6-1.3); POTASSIUM 4.1 mmol/L (3.5-4.5)
[2024-12-14 09:30] VITALS: BP 146/81; O2SAT 93
--- NOTE | 2024-12-14 11:43 | Discharge Summary ---
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 She explained that initially episodes were precipitated with movement now but now are occurring at rest. She denies any change in vision, chestpain, tinnitus. Her workup has included, CT, CTA , MRI, EKG basic labs and have been unremarkable. She was given meclizine as outpatient which temporarily improved her symptoms, but today after she took the meclizine she developed nausea and had multiple episodes of vomiting.In the ED, she is more comfortable after symptomatic treatment with phernergan, scopolamine, and ativan. She was however unable to walk without the return of the dizziness. i will admit for observation and monitoring. HOSPITAL COURSE Hospital Course: She was admitted into the hospital and underwent MRI brain which showed no acute or subacute infarct but did show age-related global volume loss. She underwent CT angiogram head and neck which also showed no acute findings. Echocardiogram was performed which showed EF 55 to 60%, mild tricuspid regurgitation and mild valvular aortic stenosis. She was treated for her UTI and worked with physical therapy. Physical therapy recommended SNF, so today she is discharging to SNF where she will continue to undergo physical therapy and will follow-up with specialist regarding vestibular symptoms ALLERGIES Allergies Allergy/AdvReac Type Severity Reaction Status Date / Time atorvastatin Allergy Mild Unknown Verified 12/11/24 22:34 MEDICATIONS Ambulatory Orders Medication Instructions Recorded Confirmed esomeprazole magnesium 20 mg 20 mg PO DAILY 12/06/24 0 12/08/24 capsule,delayed release (Nexium) calcium carbonate (Calcium 500) 500 mg PO .QHS 5 12/08/24 cranberry 500 mg capsule 500 mg PO UD 12/08/24 estradiol 0.01% (0.1 mg/gram) 1 appful vaginal .COMPLE X 12/11/24 vaginal cream (Estrace) famotidine 20 mg tablet 20 mg PO .COMPLEX 12/11/24 losartan 25 mg tablet 25 mg PO QDAY 12/11/24 amitriptyline 10 mg tablet 10 mg PO QPM 30 days #30 ta bs 12/14/24 diclofenac sodium 1 % topical gel 2 g topical QID PRN Mild Pain 12/14/24 (Arthritis Pain (diclofenac)) (Level 1-3) 30 days #50 grams PHYSICAL EXAM AT DISCHARGE Vital Signs: Vital Signs x48h Temp Pulse Resp BP Pulse Ox 12/14/24 09:28 36.6 C 63 20 146/81 H 93 General Appearance: positive No acute distress and Alert Eyes Bilateral: positive Normal inspection and PERRL ENT: positive ENT inspection nml Neck: positive Nml inspection Respiratory: positive Chest non-tender Cardiovascular: positive Regular rate & rhythm Peripheral Pulses: positive 2+ Abdomen: positive Non-tender Extremities: positive Non-tender Neurologic/Psychiatric: positive Oriented x3 LABS 12/14/24 05:42 12/14/24 05:42 FOLLOW UP Follow Up: With PCP, will need referral to neurology/ENT/vestibular therapist TIME SPENT Time Spent in Discharge (Minutes): 43 Discharge Plan Discharge Patient Disposition: [facility] DC/Xfer Prescriptions: New amitriptyline 10 mg Tablet 10 mg PO QPM 30 Days Qty: 30 0RF diclofenac sodium [Arthritis Pain (diclofenac)] 1 % Gel 2 g topical QID PRN (Reason: Mild Pain (Level 1-3)) 30 Days Qty: 50 0RF Continued famotidine 20 mg tablet 20 mg PO .COMPLEX Rx Instructions: 2 \ take 1 tablet mouth at bedtime for acid reflux estradiol [Estrace] 0.01 % (0.1 mg/gram) cream 1 appful vaginal .COMPLEX Rx Instructions: Apply 1 gram into vagina once a day as directed Apply to the urethral meatus every day for 2 weeks, then three days a week going forward losartan 25 mg tablet 25 mg PO QDAY esomeprazole magnesium [Nexium] 20 mg capsule,delayed release(DR/EC) 20 mg PO DAILY calcium carbonate [Calcium 500] 500 mg calcium (1,250 mg) tablet,chewable 500 mg PO .QHS cranberry 500 mg capsule 500 mg PO UD Rx Instructions: TAKES 3 TIMES WEEKLY. Discontinued sulfamethoxazole-trimethoprim [Bactrim DS] 800-160 mg tablet 1 tab PO BID cephalexin 500 mg capsule 500 mg PO .COMPLEX Rx Instructions: 5 take 1 capsule by mouth single dose 1-2 before by mouth cystoscopy Activity Restrictions: Activity as Tolerated Diet: Regular Health Concerns: You have had issues with dizziness for some time. You came into the hospital as directed by your vestibular specialist. You are worked up for potential stroke, and your workup was negative including MRI brain and echocardiogram. I am not sure what is causing your dizziness, but I suspect it is vertigo or some form of vestibular migraine. I am [facility] to [facility] facility as recommended by physical therapy. You also had a UTI, and completed a course of antibiotics for this. I would like for you to follow-up with your primary care provider, and get a referral from them to neurology and/or ENT and continue physical therapy Print Language: Slovenian Patient Instructions: Dizziness Vertigo Balance Safety Stand Alone Forms: SNF Discharge, PCP List
== END 2024-12-14 13:48 | DRG 149 ==
LOC: MS3 19:35 → ED 19:35 → MS3 12-08 00:10
PROVIDERS: ADMIT Hospitalist; ATTEND Hospitalist
DX: R11.2 Nausea with vomiting, unspecified; H61.21 Impacted cerumen, right ear; I47.20 Ventricular tachycardia, unspecified; G43.809 Other migraine, not intractable, without status migrainosus; N39.0 Urinary tract infection, site not specified; R42 Dizziness and giddiness; R00.1 Bradycardia, unspecified; I08.2 Rheumatic disorders of both aortic and tricuspid valves; I35.0 Nonrheumatic aortic (valve) stenosis; I10 Essential (primary) hypertension; Z66 Do not resuscitate